=== PATIENT | female | born 1950 | race Caucasian/White ===

== ENCOUNTER 2016-05-26 16:05 | Inpatient (IN) | payer BC ==
[2016-05-26] MEDS ORDERED: SODIUM CHLORIDE 1,000 ML IV STA (16:11)
[2016-05-26] MEDS ORDERED: LORAZEPAM CARPU-JECT 2 MG/ML DISP.SYRIN IVPUSH ONE (16:11)
[2016-05-26 16:41] LABS: EOSINOPHIL 0.5 % (0-4.5); MCH 31.1 pg (25.7-33.7); MCHC 34.1 g/dl (32.0-36.0); MEAN CELL VOLUME 91.3 fl (80-96); MEAN PLT VOLUME 7.8 fl (7.5-11.1); NEUTROPHILS 63.4 % (42.8-82.8); PLATELET COUNT 385 K/MM3 (134-434); RDW 13.7 % (11.6-15.6); WHITE BLOOD COUNT 7.5 K/mm3 (4.0-10.0)
[2016-05-26 16:49] LABS: ALBUMIN 4.1 g/dl (3.5-5.0); ALK PHOS 67 U/L (32-92); ANION GAP 14 (8-16); BILIRUBIN,TOTAL 0.9 mg/dl (0.2-1.0); CALCIUM 9.6 mg/dl (8.4-10.2); CO2 19 mmol/L (22-28); CREATININE 0.9 mg/dl (0.6-1.3); GLUCOSE,RANDOM 210 mg/dl (74-106); MAGNESIUM 1.7 mg/dL (1.8-2.4); SGOT/AST 40 U/L (10-42); SGPT/ALT 16 U/L (10-40); TOT PROT 7.4 g/dl (6.4-8.3)
[2016-05-26 16:56] LABS: CPK(DFH) 132 IU/L (26-140)
[2016-05-26 17:13] LABS: TROPONIN I (DFP) < 0.03 ng/ml (0.03-0.50)
--- NOTE | 2016-05-26 17:16 | PDOC ---
History of Present Illness - History of Present Illness Initial Comments: 05/26/16 17:33 The patient is a 65 year old female with no PMHx who presents to the ED via EMS after a seizure. The patient's reports that the patient is under a lot of stress. The patient's was with the patient when she seized for several minutes, which resolved on its own. Patient denies chest pain, shortness of breath, headache, dizziness. Denies fever, chills, nausea, vomiting , diarrhea. <Marianna Loomis - Last Filed: 05/26/16 17:33> - General History Source: Patient, EMS, Family Exam Limitations: No Limitations <Jagjit Zuniga - Last Filed: 05/30/16 15:35> - General Chief Complaint: Seizure Stated Complaint: SEIZURE Time Seen by Provider: 05/26/16 16:10 Past History <Marianna Loomis - Last Filed: 05/26/16 17:33> - Past Medical History HTN: Yes Hypercholesterolemia: Yes - Psycho/Social/Smoking Cessation Hx Suicidal Ideation: No Smoking History: Never smoked Information on smoking cessation initiated: No Hx Alcohol Use: Yes (WINE 1 GLASS DAILY) Drug/Substance Use Hx: No <Jagjit Zuniga - Last Filed: 05/30/16 15:35> - Past Medical History Allergies/Adverse Reactions: Allergies Allergy/AdvReac Type Severity Reaction Status Date / Time Sulfa (Sulfonamide Allergy Intermediate Verified 05/26/16 16:22 Antibiotics) Home Medications: Ambulatory Orders Calcium Carbonate/Vitamin D3 [Calcium 600-Vit D3 200 Tablet] 1 each PO DAILY tablet 08/28/13 Cholecalciferol (Vitamin D3) [Vitamin D3] 2,000 unit PO AM capsule 09/28/13 Simvastatin 10 mg PO DAILY 05/26/16 Amlodipine Besylate [Norvasc -] 5 mg PO DAILY #30 tablet 05/28/16 Lisinopril [Prinivil] 10 mg PO DAILY #30 tablet 05/28/16 Sodium Chloride Tablet - 1 gm PO TID #90 tablet 05/28/16 Review of Systems - Review of Systems Comments:: 05/26/16 17:33 GENERAL/CONSTITUTIONAL: No fever or chills. No weakness. HEAD, EYES, EARS, NOSE AND THROAT: No change in vision. No ear pain or discharge. No sore throat. CARDIOVASCULAR: No chest pain or shortness of breath. RESPIRATORY: No cough, wheezing, or hemoptysis. GASTROINTESTINAL: No nausea, vomiting, diarrhea or constipation. GENITOURINARY: No dysuria, frequency, or change in urination. MUSCULOSKELETAL: No joint or muscle swelling or pain. No neck or back pain. SKIN: No rash NEUROLOGIC: + seizure. No headache, vertigo, or change in strength/sensation. ENDOCRINE: No increased thirst. No abnormal weight change. HEMATOLOGIC/LYMPHATIC: No anemia, easy bleeding, or history of blood clots. ALLERGIC/IMMUNOLOGIC: No hives or skin allergy. <VladislavMarianna A - Last Filed: 05/26/16 17:33> *Physical Exam - Vital Signs Last Vital Signs Temp Pulse Resp BP Pulse Ox 98 F 97 H 18 143/86 99 05/26/16 16:06 05/26/16 16:06 05/26/16 16:06 05/26/16 16:20 05/26/16 16:06 - Physical Exam Comments: 05/26/16 17:33 GENERAL: Confused, A&Ox1, most likely postictal. HEAD: No signs of trauma EYES: PERRLA, EOMI, sclera anicteric, conjunctiva clear ENT: Auricles normal inspection, hearing grossly normal, nares patent, oropharynx clear without exudates. Moist mucosa NECK: Normal ROM, supple, no lymphadenopathy, JVD, or masses LUNGS: Breath sounds equal, clear to auscultation bilaterally. No wheezes, and no crackles HEART: Regular rate and rhythm, normal S1 and S2, no murmurs, rubs or gallops ABDOMEN: Soft, nontender, normoactive bowel sounds. No guarding, no rebound. No masses EXTREMITIES: Normal range of motion, no edema. No clubbing or cyanosis. No cords, erythema, or tenderness NEUROLOGICAL: Cranial nerves II through XII grossly intact. Normal speech, 5/5 strength upper and lower extremities. Sensation intact throughout. No pronator drift. No dysarthria. No dysmetria. SKIN: Warm, Dry, normal turgor, no rashes or lesions noted. <VladislavMarianna A - Last Filed: 05/26/16 17:33> - Vital Signs Last Vital Signs Temp Pulse Resp BP Pulse Ox 98 F 97 H 18 143/86 99 05/26/16 16:06 05/26/16 16:06 05/26/16 16:06 05/26/16 16:20 05/26/16 16:06 - Physical Exam Comments: 05/30/16 15:34 CORRECTION TO SCRIBE NOTE: CN II-XII is intact, not grossly intact. <Jagjit Zuniga - Last Filed: 05/30/16 15:35> Heart Score/ECG Review #1 ECG reviewed & interpreted by me at: 16:45 05/26/16 17:12 A portion of this note was documented by scribe services under my direction. I have reviewed the details of the note, within reason, and agree with the documentation with the following case summary and management plan written by me. Patient treated in the ED. Patient arrives by ambulance to the emergency department. Nursing notes are reviewed and incorporated into the medical decision-making. Vital signs reviewed. Peripheral IV access obtained by the nurse, laboratory studies are drawn and sent, reviewed and interpreted by myself. Vital Signs Temp Pulse Resp BP Pulse Ox 98 F 97 H 18 143/86 99 05/26/16 16:06 05/26/16 16:06 05/26/16 16:06 05/26/16 16:20 05/26/16 16:06 <Jagjit Zuniga - Last Filed: 05/30/16 15:35> ED Treatment Course - LABORATORY CBC & Chemistry Diagram: 05/26/16 16:15 05/26/16 16:15 - ADDITIONAL ORDERS Additional order review: Laboratory Results 05/26/16 05/26/16 16:15 16:15 Sodium 126 L Potassium 4.0 Chloride 93 L Carbon Dioxide 19 L D Anion Gap 14 BUN 12 Creatinine 0.9 D Creat Clearance w eGFR > 60 Random Glucose 210 H D Calcium 9.6 Magnesium 1.7 L Total Bilirubin 0.9 D AST 40 D ALT 16 Alkaline Phosphatase 67 Creatine Kinase 132 Cancelled Troponin I < 0.03 L Cancelled Total Protein 7.4 Albumin 4.1 05/26/16 16:15 RBC 4.25 MCV 91.3 MCHC 34.1 RDW 13.7 MPV 7.8 Neutrophils % 63.4 Lymphocytes % 28.5 Monocytes % 6.6 Eosinophils % 0.5 Basophils % 1.0 D - Medications Given in the ED: ED Medications Discontinued Medications Generic Name Dose Route Start Last Admin Trade Name Toluq PRN Reason Stop Dose Admin Sodium Chloride 1,000 mls @ 1,000 mls/hr 05/26/16 16:11 05/26/16 16:20 Normal Saline - IV 05/26/16 17:10 1,000 mls/hr ASDIR STA Administration Lorazepam 1 mg 05/26/16 16:11 05/26/16 16:20 Ativan Injection - IVPUSH 05/26/16 16:12 1 mg ONCE ONE Administration <Marianna Loomis - Last Filed: 05/26/16 17:33> - LABORATORY CBC & Chemistry Diagram: 05/28/16 07:50 05/28/16 07:50 - ADDITIONAL ORDERS Additional order review: Laboratory Results 05/26/16 05/26/16 16:15 16:15 Sodium 126 L Potassium 4.0 Chloride 93 L Carbon Dioxide 19 L D Anion Gap 14 BUN 12 Creatinine 0.9 D Creat Clearance w eGFR > 60 Random Glucose 210 H D Calcium 9.6 Magnesium 1.7 L Total Bilirubin 0.9 D AST 40 D ALT 16 Alkaline Phosphatase 67 Creatine Kinase 132 Cancelled Troponin I Cancelled Total Protein 7.4 Albumin 4.1 05/26/16 16:15 RBC 4.25 MCV 91.3 MCHC 34.1 RDW 13.7 MPV 7.8 Neutrophils % 63.4 Lymphocytes % 28.5 Monocytes % 6.6 Eosinophils % 0.5 Basophils % 1.0 D - RADIOLOGY Radiology Studies Ordered: Category Date Time Status HEAD CT WITHOUT CONTRAST [CT] Stat CT Scan 05/26/16 16:11 Ordered - Medications Given in the ED: ED Medications Discontinued Medications Generic Name Dose Route Start Last Admin Trade Name [place] PRN Reason Stop Dose Admin Sodium Chloride 1,000 mls @ 1,000 mls/hr 05/26/16 16:11 05/26/16 16:20 Normal Saline - IV 05/26/16 17:10 1,000 mls/hr ASDIR STA Administration Lorazepam 1 mg 05/26/16 16:11 05/26/16 16:20 Ativan Injection - IVPUSH 05/26/16 16:12 1 mg ONCE ONE Administration <Jagjit Zuniga - Last Filed: 05/30/16 15:35> Medical Decision Making - Medical Decision Making 05/26/16 18:13 A portion of this note was documented by scribe services under my direction. I have reviewed the details of the note, within reason, and agree with the documentation with the following case summary and management plan written by me. Patient treated in the ED. Nursing notes are reviewed and incorporated into the medical decision-making. Vital signs reviewed. Peripheral IV access obtained by the nurse, laboratory studies are drawn and sent, reviewed and interpreted by myself. Vital Signs Temp Pulse Resp BP Pulse Ox 98 F 97 H 18 143/86 99 05/26/16 16:06 05/26/16 16:06 05/26/16 16:06 05/26/16 16:20 05/26/16 16:06 65-year-old female with no past medical history, brought in by EMS, accompanied by her , presents with first-time episode of grand mal seizure. The patient's reports that the patient is under a lot of stress. The patient 's was with the patient when he noted that she was doing a rigid tonic clonic movement the last for several minutes and resolved on her own. The patient has been postictal given upon arrival to the ED. Patient had sugar checked which was normal by EMS and the patient is brought to the ED. When I had seen her, the patient was clearly postictal. The patient has no known history. Differential is broad including metabolic and neurologic. CAT scan head is ordered to rule out intracranial findings. However, patient blood work demonstrates sodium 126. Though 126 is generally higher than what we expect for seizure threshold for hyponatremia, we need to potentially presume that the seizure secondary to hyponatremia if the neurologic workup of the head CT is negative. Also, the patient should be admitted to the hospital for further evaluation. 05/26/16 18:13 CBC, BMP 05/26/16 16:15 05/26/16 16:15 CMP Sodium 126 mmol/L (136-145) L 05/26/16 16:15 Potassium 4.0 mmol/L (3.5-5.1) 05/26/16 16:15 Chloride 93 mmol/L (98-107) L 05/26/16 16:15 Carbon Dioxide 19 mmol/L (22-28) L D 05/26/16 16:15 Anion Gap 14 (8-16) 05/26/16 16:15 BUN 12 mg/dl (7-18) 05/26/16 16:15 Creatinine 0.9 mg/dl (0.6-1.3) D 05/26/16 16:15 Creat Clearance w eGFR > 60 (>60) 05/26/16 16:15 Random Glucose 210 mg/dl (74-106) H D 05/26/16 16:15 Calcium 9.6 mg/dl (8.4-10.2) 05/26/16 16:15 Magnesium 1.7 mg/dL (1.8-2.4) L 05/26/16 16:15 Total Bilirubin 0.9 mg/dl (0.2-1.0) D 05/26/16 16:15 AST 40 U/L (10-42) D 05/26/16 16:15 ALT 16 U/L (10-40) 05/26/16 16:15 Alkaline Phosphatase 67 U/L (32-92) 05/26/16 16:15 Creatine Kinase 132 IU/L (26-140) 05/26/16 16:15 Troponin I < 0.03 ng/ml (0.03-0.50) L 05/26/16 16:15 Total Protein 7.4 g/dl (6.4-8.3) 05/26/16 16:15 Albumin 4.1 g/dl (3.5-5.0) 05/26/16 16:15 CT head reviewed. No acute findings. Interestingly, the patient's sodium was 126. It is possible this point hyponatremia may be secondary to seizure. However, the patient's sodium is about 126, though at these levels, the are typically less likely to have seizures. But given these findings, the patient would benefit from admission to the hospital for further evaluation. The patient has been reassessed and is no longer postictal. Case is discussed with [facility] hospitalist who accepts the patient to telemetry admission. Case discussed in detail with admitting physician including history, physical exam and ancillary studies. Admitting physician has assumed care for the patient, will follow all pending diagnostics and will complete the evaluation and treatment. 05/26/16 18:22 Dr. Motta requests [facility] telemetry admission. Pt consents. <Jagjit Zuniga - Last Filed: 05/30/16 15:35> *DC/Admit/Observation/Transfer - Attestations Scribe Attestion: 05/26/16 17:33 Documentation prepared by Marianna Loomis, acting as biomedical engineering supervisor for Jagjit Zuniga MD. <Marianna Loomis - Last Filed: 05/26/16 17:33> - Discharge Dispostion Admit: Yes <Jagjit Zuniga - Last Filed: 05/30/16 15:35> Diagnosis at time of Disposition: Hyponatremia, Seizure - Discharge Dispostion Disposition: HOME Condition at time of disposition: Improved - Prescriptions
[2016-05-26 18:22] LABS: URINE APPEARANCE Clear; URINE BILIRUBIN Negative (NEGATIVE); URINE BLOOD Trace-lysed (NEGATIVE); URINE GLUCOSE (UA) Trace (NEGATIVE); URINE KETONE 1+ (NEGATIVE); URINE NITRITE Negative (NEGATIVE); URINE PROTEIN Negative (NEGATIVE); URINE UROBILINOGEN 0.2 E.U/dl (0.2-1.0)
[2016-05-26 18:25] LABS: URINE COLOR YELLOW; URINE LEUK ESTERASE 1+ (NEGATIVE)
[2016-05-26 18:51] LABS: URINE BACTERIA FEW /hpf (NEGATIVE)
--- NOTE | 2016-05-26 22:43 | HP ---
CHIEF COMPLAINT: seizure PCP: Destinee HISTORY OF PRESENT ILLNESS: This is a 65 year old female with a past medical history of hypertension and hyperlipidemia who presented to the ED after having a seizure. She reports that she was feeling well up until just before the surgery. She describes a sensation taking over her body that she is unable to fully describe. She states she had something that felt like palpitations and then wasn't able to move and her asked her if she was ok twice and then she doesn't remember anything after that until waking up in the ED. As per the ED note her described she was doing a rigid tonic clonic movement that lasted for several minutes and resolved on her own. Pt reports that she has had this feeling before but she "didn't let it take over". She also reports that she has not been eating well the past few days as she has been stressed out (her son has kidney stones and her daughter is buying a house.) She reports that she drinks about 8 16 oz bottles of water per day. Pt reports feeling fine on exam. ER course was notable for: (1) given 1L NS (2) given 1mg ativan (3) sodium 126 Recent Travel: pt denies PAST MEDICAL HISTORY: HTN HLD anxiety-has xanax but really takes PAST SURGICAL HISTORY: ectopic surgery age 32 Social History: Smoking: pt denies Alcohol: a couple glasses of wine per night Drugs: pt denies Allergies Sulfa (Sulfonamide Antibiotics) Allergy (Intermediate, Verified 05/26/16 16:22) HOME MEDICATIONS: 3 Medication Instructions Recorded Calcium Carbonate/Vitamin D3 1 each PO DAILY tablet 08/28/13 [Calcium + Vitamin D Tablet] Cholecalciferol (Vitamin D3) 2,000 unit PO AM capsule 09/28/13 [Vitamin D3] Simvastatin 10 mg PO DAILY 05/26/16 REVIEW OF SYSTEMS CONSTITUTIONAL: Absent: fever, chills, diaphoresis, generalized weakness, malaise, loss of appetite, weight change HEENT: Absent: rhinorrhea, nasal congestion, throat pain, throat swelling, difficulty swallowing, mouth swelling, ear pain, eye pain, visual changes CARDIOVASCULAR: Absent: chest pain, syncope, palpitations, irregular heart rate, lightheadedness , peripheral edema RESPIRATORY: Absent: cough, shortness of breath, dyspnea with exertion, orthopnea, wheezing, stridor, hemoptysis GASTROINTESTINAL: Absent: abdominal pain, abdominal distension, nausea, vomiting, diarrhea, constipation, melena, hematochezia GENITOURINARY: Absent: dysuria, frequency, urgency, hesitancy, hematuria, flank pain, genital pain MUSCULOSKELETAL: Absent: myalgia, arthralgia, joint swelling, back pain, neck pain SKIN: Absent: rash, itching, pallor HEMATOLOGIC/IMMUNOLOGIC: Absent: easy bleeding, easy bruising, lymphadenopathy, frequent infections ENDOCRINE: Absent: unexplained weight gain, unexplained weight loss, heat intolerance, cold intolerance NEUROLOGIC: Present: seizure Absent: headache, focal weakness or paresthesias, dizziness, unsteady gait, mental status changes, bladder or bowel incontinence PSYCHIATRIC: Absent: anxiety, depression, suicidal or homicidal ideation, hallucinations. PHYSICAL EXAMINATION Vital Signs - 24 hr 3 05/26/16 05/26/16 05/26/16 05/26/16 16:06 16:20 20:16 22:29 Temperature 98 F 98.0 F Pulse Rate 97 H 80 Pulse Rate [ 86 Apical] Respiratory 18 18 18 Rate Blood Pressure 143/86 143/86 126/74 Blood Pressure 133/75 [Arm] O2 Sat by Pulse 99 97 100 Oximetry (%) GENERAL: Awake, alert, and fully oriented, in no acute distress. HEAD: Normal with no signs of trauma. EYES: Pupils equal, round and reactive to light, extraocular movements intact, sclera anicteric, conjunctiva clear. No lid lag. EARS, NOSE, THROAT: Ears normal, nares patent, oropharynx clear without exudates. Moist mucous membranes. NECK: Normal range of motion, supple without lymphadenopathy, JVD, or masses. LUNGS: Breath sounds equal, clear to auscultation bilaterally. No wheezes, and no crackles. No accessory muscle use. HEART: Regular rate and rhythm, normal S1 and S2 without murmur, rub or gallop. ABDOMEN: Soft, nontender, not distended, normoactive bowel sounds, no guarding, no rebound, no masses. No hepatomegaly or splenomegaly. MUSCULOSKELETAL: Normal range of motion at all joints. No bony deformities or tenderness. No CVA tenderness. UPPER EXTREMITIES: 2+ pulses, warm, well-perfused. No cyanosis. No clubbing. No peripheral edema. LOWER EXTREMITIES: 2+ pulses, warm, well-perfused. No calf tenderness. No peripheral edema. NEUROLOGICAL: Cranial nerves II-XII intact. Normal speech. Normal gait. PSYCHIATRIC: Cooperative. Good eye contact. Appropriate mood and affect. SKIN: Warm, dry, normal turgor, no rashes or lesions noted, normal capillary refill. Laboratory Results - last 24 hr 3 05/26/16 05/26/16 05/26/16 16:15 16:15 16:15 WBC 7.5 RBC 4.25 Hgb 13.2 Hct 38.8 MCV 91.3 MCHC 34.1 RDW 13.7 Plt Count 385 MPV 7.8 Neutrophils % 63.4 Lymphocytes % 28.5 Monocytes % 6.6 Eosinophils % 0.5 Basophils % 1.0 D Sodium 126 L Potassium 4.0 Chloride 93 L Carbon Dioxide 19 L D Anion Gap 14 BUN 12 Creatinine 0.9 D Creat Clearance w eGFR > 60 Random Glucose 210 H D Calcium 9.6 Magnesium 1.7 L Total Bilirubin 0.9 D AST 40 D ALT 16 Alkaline Phosphatase 67 Creatine Kinase Cancelled 132 Troponin I Cancelled < 0.03 L Total Protein 7.4 Albumin 4.1 Urine Color Urine Appearance Urine pH Ur Specific [place] Urine Protein Urine Glucose (UA) Urine Ketones Urine Blood Urine Nitrite Urine Bilirubin Urine Urobilinogen Ur Leukocyte Esterase Urine RBC Urine WBC Ur Epithelial Cells Urine Bacteria 3 05/26/16 05/26/16 18:15 21:54 WBC RBC Hgb Hct MCV MCHC RDW Plt Count MPV Neutrophils % Lymphocytes % Monocytes % Eosinophils % Basophils % Sodium 124 L* Potassium 4.0 Chloride 94 L Carbon Dioxide 19 L Anion Gap 11 BUN 10 Creatinine 0.6 D Creat Clearance w eGFR Random Glucose 124 H D Calcium 9.0 Magnesium Total Bilirubin AST ALT Alkaline Phosphatase Creatine Kinase Troponin I Total Protein Albumin Urine Color Yellow Urine Appearance Clear Urine pH 7.0 Ur Specific [place] 1.015 Urine Protein Negative Urine Glucose (UA) Trace Urine Ketones 1+ H Urine Blood Trace-lysed Urine Nitrite Negative Urine Bilirubin Negative Urine Urobilinogen 0.2 e.u/dl Ur Leukocyte Esterase 1+ H Urine RBC 2-4 Urine WBC 5-8 Ur Epithelial Cells Few Urine Bacteria Few CT head: Cranial CT without contrast Clinical information given: first time seizure Negative exam. No discrete noncontrast CT abnormality is identified. MRI evaluation is suggested, nonemergent unless otherwise clinically indicated. Impression: As discussed above. ASSESSMENT/PLAN: 65yF with PMH HTN, HLD, anxiety presented to ED s/p seizure. She is being admitted for further treatment. seizure - new onset - neurology consult ordered - CT head negative - monitor for recurrence, ativan if occurs hyponatremia - repeat sodium 124 after 1L NS - fluid restriction 800cc/day - serum osmolality, urine osmolality, urine sodium, TSH ordered - renal consult ordered, discussed case with Dr. Duncan Hypertension - cont home meds: norvasc, benazepril, toprol as BP stable with same. Hyperlipidemia - cont zocor DVT PPX - heparin 5000u Q8H FEN - hold IVF for now, fluid restriction - repeat labs in am - regular diet Dispo: Pt currently requires inpatient management of her emergent condition. Visit type - Emergency Visit Emergency Visit: Yes ED Registration Date: 05/26/16 Care time: The patient presented to the Emergency Department on the above date and was hospitalized for further evaluation of their emergent condition. - New Patient This patient is new to me today: Yes Date on this admission: 05/26/16 - Critical Care Critical Care patient: No
[2016-05-26 22:44] LABS: ANION GAP 11 (8-16); CO2 19 mmol/L (22-28); CREATININE 0.6 mg/dl (0.6-1.3); GLUCOSE,RANDOM 124 mg/dl (74-106)
[2016-05-27 00:01] VITALS: BMI 24.5
[2016-05-27] MEDS: SODIUM CHLORIDE 1 GM TABLET PO SCH ×4 (00:58→21:14)
[2016-05-27 01:50] LABS: OSMOLALITY,SERUM 262 mosm/kg (278-305)
[2016-05-27] MEDS: HEPARIN NA (PORCINE) 5,000 UNITS/ML 1ML VIAL SQ SCH ×3 (02:22→18:08)
[2016-05-27 08:54] LABS: MAGNESIUM 1.9 mg/dL (1.8-2.4); PHOSPHOROUS 2.9 mg/dl (2.5-4.6)
--- NOTE | 2016-05-27 09:13 | CON.NEP ---
Consult Consult Specialty:: Nephrology Referred by:: Chacha Jarvis NP Reason for Consultation:: Hyponatremia - History of Present Illness Chief Complaint: New onset of seizure disorder History of Present Illness: This is a 65 year old female with a past medical hisotry of hypertension and hyperlipidemia who presented to the ED after having a seizure. Reportedly pt had rigid tonic clonic movement that lasted for several minutes prior resolving spontaneously. Serum Na decreased further with IVF PMH HTN on Lisinopriol, Metoprolol and Amlodipine but no diuretics Anxiety disorder on prn Alpazolam Anxiety related seizure >10 years ago HLD PSH S/P Ectopic Has had increased anxiety since son is now suffering from Kidney stones and dtr due to arrive from [place] which is stressful No C/O N/V or diarrhea No wt loss Pt drinks 3-4 quarts of water a day in addition to coffee and wine Non smoker 1-2 glasses of wine daily Had Mammogram and PAP smear in Sep 2015 Due for Colonoscopy - History Source History Provided By: Patient, Medical Record - Past Medical History ...: No - Alcohol/Substance Use Hx Alcohol Use: Yes (WINE 1 GLASS DAILY) - Smoking History Smoking history: Never smoked Have you smoked in the past 12 months: No Home Medications - Allergies Allergies/Adverse Reactions: Allergies Allergy/AdvReac Type Severity Reaction Status Date / Time Sulfa (Sulfonamide Allergy Intermediate Verified 05/26/16 16:22 Antibiotics) - Home Medications Home Medications: Ambulatory Orders Calcium Carbonate/Vitamin D3 [Calcium + Vitamin D Tablet] 1 each PO DAILY tablet 08/28/13 Cholecalciferol (Vitamin D3) [Vitamin D3] 2,000 unit PO AM capsule 09/28/13 Simvastatin 10 mg PO DAILY 05/26/16 Nephrology Consult - Height Height: 5 ft 7 in - Weight Weight: 157 lb - BMI Body Mass Index (BMI): 24.5 - Lab Results CBC,BMP: CBC, BMP 05/26/16 21:54 Laboratory Tests 05/26/16 05/26/16 05/26/16 16:15 18:15 21:54 Sodium 126 L Random Glucose 210 H D 124 H D Serum Osmolality TSH Ur Specific [place] 1.015 Urine Glucose (UA) Trace Urine Ketones 1+ H Ur Leukocyte Esterase 1+ H Urine RBC 2-4 Urine WBC 5-8 Urine Osmolality Ur Random Sodium 05/27/16 05/27/16 05/27/16 00:30 00:40 07:00 Sodium Random Glucose Serum Osmolality 262 L TSH Pending Ur Specific [place] Urine Glucose (UA) Urine Ketones Ur Leukocyte Esterase Urine RBC Urine WBC Urine Osmolality 367 Ur Random Sodium 101 Laboratory Tests 05/26/16 16:15 WBC 7.5 RBC 4.25 Hgb 13.2 Hct 38.8 MCV 91.3 MCHC 34.1 RDW 13.7 Plt Count 385 Anion Gap: Anion Gap Anion Gap 11 (8-16) 05/26/16 21:54 - Imaging Chest X-ray: Report Reviewed, Other (No acute pathology) Cat Scan: Report Reviewed (Brain Ct Scan unrevealing), Other EKG: Other (NSR with LAE) - Physical Examination Vital Signs: Vital Signs Temperature 98.0 F 05/27/16 06:40 Pulse Rate 80 05/27/16 06:40 Respiratory Rate 20 05/27/16 08:01 Blood Pressure 137/75 05/27/16 06:40 O2 Sat by Pulse Oximetry (%) 98 05/27/16 08:01 Constitutional: Yes: Anxious Cardiovascular: Yes: S1, S2. No: JVD Respiratory: Yes: CTA Bilaterally Gastrointestinal: Yes: Soft. No: Palpable Mass, Tenderness, Rebound Renal/: No: CVA Tenderness - Left, CVA Tenderness - Right Edema: No Neurological: Yes: Alert, Oriented Assessment/Plan Impression Hyponatremia possibly from an SIADH from her anxiety but to exclude other causes. Polydipsia also contributory to the hyponatremia. Seizure disorder in past now the result of or the cause of the hyponatremia Pyuria HTN HLD Plan Add Cortisol to am labs Await TSH level Fluid restrict Rpt BMP at 4 pm today Will need to exclude underlying malignancy if SIADH confirmed UC awaited Neurology opinion DIscussed with the Hospitalist Dr Morgan
--- NOTE | 2016-05-27 09:21 | EKG ---
Test Reason : Blood Pressure : / mmHG Vent. Rate : 088 BPM Atrial Rate : 088 BPM P-R Int : 136 ms QRS Dur : 078 ms QT Int : 400 ms P-R-T Axes : 058 016 055 degrees QTc Int : 484 ms NORMAL SINUS RHYTHM POSSIBLE LEFT ATRIAL ENLARGEMENT NONSPECIFIC ST ABNORMALITY PROLONGED QT ABNORMAL ECG NO PREVIOUS ECGS AVAILABLE Confirmed by AGUSTÍN HERR MD ([id number] on 05/27/2016 9:21:26 AM Referred By: MD AMBROSIO Confirmed By:AGUSTÍN HERR MD
--- NOTE | 2016-05-27 10:06 | PN ---
[id number] year old female with a past medical history of anxiety, hypertension and hyperlipidemia. Patient was admitted from the emergency department for hyponatremia. Vital Signs Period Temp Pulse Resp BP Sys/Correa Pulse Ox Last 24 Hr 98.0 F-98.0 F 80-80 8-20 126-137/74-75 98-100 GENERAL: The patient is awake, alert, and fully oriented, anxious . HEAD: Normal with no signs of trauma. EYES: PERRL, extraocular movements intact, sclera anicteric, conjunctiva clear. No ptosis. ENT: Ears normal, nares patent, oropharynx clear without exudates, moist mucous membranes. NECK: Trachea midline, full range of motion, supple. LUNGS: Breath sounds equal, clear to auscultation bilaterally, no wheezes, no crackles, no accessory muscle use. HEART: Regular rate and rhythm, S1, S2 without murmur, rub or gallop. ABDOMEN: Soft, nontender, nondistended, normoactive bowel sounds, no guarding, no rebound, no hepatosplenomegaly, no masses. EXTREMITIES: 2+ pulses, warm, well-perfused, no edema. NEUROLOGICAL: Cranial nerves II through XII grossly intact. Normal speech, gait not observed. PSYCH: Normal mood, normal affect. SKIN: Warm, dry, normal turgor, no rashes or lesions noted Laboratory Results - last 24 hr CBC WBC 4.8 K/mm3 (4.0-10.0) D 05/27/16 07:45 RBC 4.01 M/mm3 (3.60-5.2) 05/27/16 07:45 Hgb 12.8 GM/dl (10.7-15.3) 05/27/16 07:45 Hct 37.5 % (32.4-45.2) 05/27/16 07:45 MCV 93.5 fl (80-96) 05/27/16 07:45 MCHC 34.1 g/dl (32.0-36.0) 05/27/16 07:45 RDW 13.9 % (11.6-15.6) 05/27/16 07:45 Plt Count 327 K/MM3 (134-434) 05/27/16 07:45 MPV 7.9 fl (7.5-11.1) 05/27/16 07:45 Neutrophils % 66.7 % (42.8-82.8) 05/27/16 07:45 Lymphocytes % 23.9 % (8-40) 05/27/16 07:45 Monocytes % 8.2 % (3.8-10.2) 05/27/16 07:45 Eosinophils % 0.5 % (0-4.5) 05/27/16 07:45 Basophils % 0.7 % (0-2.0) 05/27/16 07:45 CMP Sodium 127 mmol/L (136-145) L 05/27/16 07:45 Potassium 3.7 mmol/L (3.5-5.1) 05/27/16 07:45 Chloride 97 mmol/L (98-107) L 05/27/16 07:45 Carbon Dioxide 20 mmol/L (22-28) L 05/27/16 07:45 Anion Gap 10 (8-16) 05/27/16 07:45 BUN 8 mg/dl (7-18) 05/27/16 07:45 Creatinine 0.7 mg/dl (0.6-1.3) 05/27/16 07:45 Creat Clearance w eGFR > 60 (>60) 05/26/16 16:15 Random Glucose 89 mg/dl (74-106) D 05/27/16 07:45 Serum Osmolality 262 mosm/kg (278-305) L 05/27/16 00:40 Calcium 9.4 mg/dl (8.4-10.2) 05/27/16 07:45 Phosphorus 2.9 mg/dl (2.5-4.6) 05/27/16 07:00 Magnesium 1.9 mg/dL (1.8-2.4) 05/27/16 07:00 Total Bilirubin 0.9 mg/dl (0.2-1.0) D 05/26/16 16:15 AST 40 U/L (10-42) D 05/26/16 16:15 ALT 16 U/L (10-40) 05/26/16 16:15 Alkaline Phosphatase 67 U/L (32-92) 05/26/16 16:15 Creatine Kinase 132 IU/L (26-140) 05/26/16 16:15 Troponin I < 0.03 ng/ml (0.03-0.50) L 05/26/16 16:15 Total Protein 7.4 g/dl (6.4-8.3) 05/26/16 16:15 Albumin 4.1 g/dl (3.5-5.0) 05/26/16 16:15 TSH 0.90 uIU/ml (0.358-3.74) D 05/27/16 07:00 Active Medications Generic Name Dose Route Start Last Admin Trade Name Freq PRN Reason Stop Dose Admin Amlodipine Besylate 5 mg 05/27/16 10:00 Norvasc - PO DAILY CASSIA Atorvastatin Calcium 10 mg 05/27/16 10:00 Lipitor - PO DAILY C[facility]IA Calcium Carbonate/Cholecalciferol 1 tab 05/27/16 10:00 Os-Abdelrahman 500+D - PO DAILY C[facility]IA Cholecalciferol 2,000 unit 05/27/16 10:00 Vitamin D3 - PO DAILY C[facility]IA Heparin Sodium (Porcine) 5,000 unit 05/27/16 02:00 05/27/16 02:22 Heparin - SQ 5,000 unit Q8H C[facility]IA Administration Lisinopril 10 mg 05/27/16 10:00 Prinivil PO DAILY CASSIA Metoprolol Succinate 50 mg 05/27/16 10:00 Toprol Xl - PO DAILY CASSIA Sodium Chloride 1 gm 05/27/16 01:00 05/27/16 06:15 Sodium Chloride Tablet - PO 1 gm TID CASSIA Administration CT head: Cranial CT without contrast Clinical information given: first time seizure Negative exam. No discrete noncontrast CT abnormality is identified. ASSESSMENT/PLAN: 1) neuro: seizure - past history of seizure secondary to hyponatremia in 2004 - seizure precautions - neuro consult 2) neph: hyponatremia - repeat sodium 127, continue fluid restriction and sodium tablets - f/u serum & urine osmo and urine sodium, TSH WNL - Dr Morgan nephrology consulted and following 3) card hypertension - continue norvasc, benazepril, toprol - b/p well controlled Hyperlipidemia - continue zocor DVT PPX - heparin 5000u Q8H FEN - regular diet - repeat bmp at 1600 Dispo: Pt currently requires inpatient management of her emergent condition. Visit type - Emergency Visit Emergency Visit: Yes ED Registration Date: 05/26/16 Care time: The patient presented to the Emergency Department on the above date and was hospitalized for further evaluation of their emergent condition. - New Patient This patient is new to me today: No - Critical Care Critical Care patient: No - Discharge Referral Referred to [facility] Med P.C.: No
[2016-05-27 10:09] LABS: MCH 31.9 pg (25.7-33.7)
[2016-05-27 10:17] LABS: BASOPHIL 0.7 % (0-2.0); EOSINOPHIL 0.5 % (0-4.5); MCHC 34.1 g/dl (32.0-36.0); MEAN CELL VOLUME 93.5 fl (80-96); MEAN PLT VOLUME 7.9 fl (7.5-11.1); NEUTROPHILS 66.7 % (42.8-82.8); PLATELET COUNT 327 K/MM3 (134-434); RDW 13.9 % (11.6-15.6); WHITE BLOOD COUNT 4.8 K/mm3 (4.0-10.0)
[2016-05-27] MEDS: CHOLECALCIFEROL (VITAMIN D3) 1,000 UNIT TABLET (FP) PO SCH (10:22)
[2016-05-27] MEDS: ATORVASTATIN CA 10 MG TABLET (FP) PO SCH (10:23)
[2016-05-27] MEDS: CALCIUM 500MG/VIT-D 200 UNITS COMBO TABLET (FP) PO SCH (10:23)
[2016-05-27] MEDS: amLODIPine BESYLATE 5 MG TABLET (FP) PO SCH (10:23)
[2016-05-27] MEDS: METOPROLOL SUCCINATE 50 MG TAB.SR.24H (FP) PO SCH (10:23)
[2016-05-27 11:52] LABS: THYROID STIMULATING HORMONE 0.9 uIU/ml (0.358-3.74)
[2016-05-27 12:28] LABS: ANION GAP 10 (8-16); CALCIUM 9.4 mg/dl (8.4-10.2); CO2 20 mmol/L (22-28); CREATININE 0.7 mg/dl (0.6-1.3); GLUCOSE,RANDOM 89 mg/dl (74-106)
[2016-05-27] MEDS ORDERED: ALPRAZolam 0.25 MG TABLET PO PRN (14:13)
--- NOTE | 2016-05-27 15:28 | CONSULT ---
Consult - text type - Consultation Consultation Note: Neurology History of Present Illness The patient is a 65 year old female with no PMHx who presents to the ED via EMS after a seizure. The patient's reports that the patient is under a lot of stress. The patient's was with the patient when she seized for several minutes, which resolved on its own. She has never had episodes before. She is hyponatremic and being worked up. CT head done and without acute changes. Past History - Past Medical History HTN: Yes Hypercholesterolemia: Yes - Psycho/Social/Smoking Cessation Hx Suicidal Ideation: No Smoking History: Never smoked Information on smoking cessation initiated: No Hx Alcohol Use: Yes (WINE 1 GLASS DAILY) Drug/Substance Use Hx: No - Past Medical History Allergies/Adverse Reactions: Allergies Allergy/AdvReac Type Severity Reaction Status Date / Time Sulfa (Sulfonamide Allergy Intermediate Verified 05/26/16 16:22 Antibiotics) Home Medications: Ambulatory Orders Alprazolam 0.25 mg PO tablet 08/28/13 Calcium Carbonate/Vitamin D3 [Calcium + Vitamin D Tablet] 1 each PO DAILY tablet 08/28/13 Cholecalciferol (Vitamin D3) [Vitamin D3] 2,000 unit PO AM capsule 09/28/13 Review of Systems GENERAL/CONSTITUTIONAL: No fever or chills. No weakness. HEAD, EYES, EARS, NOSE AND THROAT: No change in vision. No ear pain or discharge. No sore throat. CARDIOVASCULAR: No chest pain or shortness of breath. RESPIRATORY: No cough, wheezing, or hemoptysis. GASTROINTESTINAL: No nausea, vomiting, diarrhea or constipation. GENITOURINARY: No dysuria, frequency, or change in urination. MUSCULOSKELETAL: No joint or muscle swelling or pain. No neck or back pain. SKIN: No rash NEUROLOGIC: + seizure. No headache, vertigo, or change in strength/sensation. ENDOCRINE: No increased thirst. No abnormal weight change. HEMATOLOGIC/LYMPHATIC: No anemia, easy bleeding, or history of blood clots. ALLERGIC/IMMUNOLOGIC: No hives or skin allergy. *Physical Exam - Vital Signs Last Vital Signs Temp Pulse Resp BP Pulse Ox 98 F 97 H 18 143/86 99 05/26/16 16:06 05/26/16 16:06 05/26/16 16:06 05/26/16 16:20 05/26/16 16:06 GENERAL: Confused, A&Ox1, most likely postictal. HEAD: No signs of trauma EYES: PERRLA, EOMI, sclera anicteric, conjunctiva clear ENT: Auricles normal inspection, hearing grossly normal, nares patent, oropharynx clear without exudates. Moist mucosa NECK: Normal ROM, supple, no lymphadenopathy, JVD, or masses LUNGS: Breath sounds equal, clear to auscultation bilaterally. No wheezes, and no crackles HEART: Regular rate and rhythm, normal S1 and S2, no murmurs, rubs or gallops ABDOMEN: Soft, nontender, normoactive bowel sounds. No guarding, no rebound. No masses EXTREMITIES: Normal range of motion, no edema. No clubbing or cyanosis. No cords, erythema, or tenderness NEUROLOGICAL: Cranial nerves II through XII grossly intact. Normal speech, 5/5 strength upper and lower extremities. Sensation intact throughout. No pronator drift. No dysarthria. No dysmetria. SKIN: Warm, Dry, normal turgor, no rashes or lesions noted. Laboratory Results 05/26/16 05/26/16 16:15 16:15 Sodium 126 L Potassium 4.0 Chloride 93 L Carbon Dioxide 19 L D Anion Gap 14 BUN 12 Creatinine 0.9 D Creat Clearance w eGFR > 60 Random Glucose 210 H D Calcium 9.6 Magnesium 1.7 L Total Bilirubin 0.9 D AST 40 D ALT 16 Alkaline Phosphatase 67 Creatine Kinase 132 Cancelled Troponin I < 0.03 L Cancelled Total Protein 7.4 Albumin 4.1 05/26/16 16:15 RBC 4.25 MCV 91.3 MCHC 34.1 RDW 13.7 MPV 7.8 Neutrophils % 63.4 Lymphocytes % 28.5 Monocytes % 6.6 Eosinophils % 0.5 Basophils % 1.0 D Medical Decision Making 65 year old female with no PMHx who presents to the ED via EMS after a seizure. The patient's reports that the patient is under a lot of stress. The patient's was with the patient when she seized for several minutes, which resolved on its own. She has never had episodes before. She is hyponatremic and being worked up. CT head done and without acute changes. Would not put her on AED for one time event. Would recommend correction of electrolyte abnormalities. Renal follow up.
[2016-05-27 16:39] LABS: ANION GAP 10 (8-16); CALCIUM 9.6 mg/dl (8.4-10.2); CO2 21 mmol/L (22-28); CREATININE 0.8 mg/dl (0.6-1.3); GLUCOSE,RANDOM 106 mg/dl (74-106)
[2016-05-28] MEDS: HEPARIN NA (PORCINE) 5,000 UNITS/ML 1ML VIAL SQ SCH ×2 (01:31→09:36)
[2016-05-28 06:42] VITALS: TEMP 98
[2016-05-28] MEDS: SODIUM CHLORIDE 1 GM TABLET PO SCH (06:57)
[2016-05-28 08:22] LABS: BASOPHIL 0.9 % (0-2.0); EOSINOPHIL 0.8 % (0-4.5); MCH 31.6 pg (25.7-33.7); MCHC 33.7 g/dl (32.0-36.0); MEAN CELL VOLUME 93.9 fl (80-96); MEAN PLT VOLUME 7.7 fl (7.5-11.1); NEUTROPHILS 65.1 % (42.8-82.8); PLATELET COUNT 318 K/MM3 (134-434); RDW 14.3 % (11.6-15.6); WHITE BLOOD COUNT 5.7 K/mm3 (4.0-10.0)
[2016-05-28 08:48] LABS: ALBUMIN 3.6 g/dl (3.5-5.0); ALK PHOS 54 U/L (32-92); ANION GAP 9 (8-16); BILIRUBIN,TOTAL 0.7 mg/dl (0.2-1.0); CALCIUM 9.2 mg/dl (8.4-10.2); CO2 24 mmol/L (22-28); CREATININE 0.7 mg/dl (0.6-1.3); GLUCOSE,RANDOM 105 mg/dl (74-106); SGOT/AST 29 U/L (10-42); SGPT/ALT 15 U/L (10-40); TOT PROT 6.9 g/dl (6.4-8.3)
[2016-05-28 08:59] LABS: COCKROFT - GAULT NT
[2016-05-28 09:32] VITALS: BP 120/70; PULSE 72
[2016-05-28] MEDS: METOPROLOL SUCCINATE 50 MG TAB.SR.24H (FP) PO SCH (09:33)
[2016-05-28] MEDS: CHOLECALCIFEROL (VITAMIN D3) 1,000 UNIT TABLET (FP) PO SCH (09:34)
[2016-05-28] MEDS: CALCIUM 500MG/VIT-D 200 UNITS COMBO TABLET (FP) PO SCH (09:36)
[2016-05-28] MEDS: ATORVASTATIN CA 10 MG TABLET (FP) PO SCH (09:36)
[2016-05-28] MEDS: amLODIPine BESYLATE 5 MG TABLET (FP) PO SCH (09:36)
--- NOTE | 2016-05-28 09:41 | PN ---
Physical Exam: SUBJECTIVE: Patient seen and examined. She denies any dizziness, shortness of breath of any other discomfort. States she is aware that she was drinking an excessive amount of water. States she is very stressed due to family situations. OBJECTIVE: On a 800cc fluid restriction Vital Signs Period Temp Pulse Resp BP Sys/Correa Pulse Ox Last 24 Hr 97.8 F-98.2 F 72-87 16-18 106-129/54-75 98-100 GENERAL: The patient is awake, alert, and fully oriented, in no acute distress. HEAD: Normal with no signs of trauma. EYES: PERRL, extraocular movements intact, sclera anicteric, conjunctiva clear. No ptosis. ENT: Ears normal, nares patent, oropharynx clear without exudates, moist mucous membranes. NECK: Trachea midline, full range of motion, supple. LUNGS: Breath sounds equal, clear to auscultation bilaterally, no wheezes, no crackles, no accessory muscle use. HEART: Regular rate and rhythm ABDOMEN: Soft, nontender, nondistended, normoactive bowel sounds, no guarding, no rebound, no hepatosplenomegaly, no masses. EXTREMITIES: 2no edema. NEUROLOGICAL: Normal speech, gait not observed. PSYCH: Normal mood, normal affect. SKIN: Warm, dry, normal turgor, no rashes or lesions noted Laboratory Results - last 24 hr 05/27/16 05/27/16 05/27/16 07:00 07:45 07:45 WBC 4.8 D RBC 4.01 Hgb 12.8 Hct 37.5 MCV 93.5 MCHC 34.1 RDW 13.9 Plt Count 327 MPV 7.9 Neutrophils % 66.7 Lymphocytes % 23.9 Monocytes % 8.2 Eosinophils % 0.5 Basophils % 0.7 Sodium 127 L Potassium 3.7 Chloride 97 L Carbon Dioxide 20 L Anion Gap 10 BUN 8 Creatinine 0.7 Creat Clearance w eGFR Random Glucose 89 D Calcium 9.4 Total Bilirubin AST ALT Alkaline Phosphatase Total Protein Albumin TSH 0.90 D Cortisol AM Sample 05/27/16 05/27/16 05/28/16 16:00 16:18 07:50 WBC 5.7 RBC 3.95 Hgb 12.5 Hct 37.1 MCV 93.9 MCHC 33.7 RDW 14.3 Plt Count 318 MPV 7.7 Neutrophils % 65.1 Lymphocytes % 27.1 Monocytes % 6.1 Eosinophils % 0.8 Basophils % 0.9 Sodium 129 L Potassium 4.0 Chloride 98 Carbon Dioxide 21 L Anion Gap 10 BUN 12 D Creatinine 0.8 Creat Clearance w eGFR Random Glucose 106 Calcium 9.6 Total Bilirubin AST ALT Alkaline Phosphatase Total Protein Albumin TSH Cortisol AM Sample 20.3 05/28/16 07:50 WBC RBC Hgb Hct MCV MCHC RDW Plt Count MPV Neutrophils % Lymphocytes % Monocytes % Eosinophils % Basophils % Sodium 134 L Potassium 3.8 Chloride 101 Carbon Dioxide 24 Anion Gap 9 BUN 11 Creatinine 0.7 Creat Clearance w eGFR > 60 Random Glucose 105 Calcium 9.2 Total Bilirubin 0.7 D AST 29 D ALT 15 Alkaline Phosphatase 54 Total Protein 6.9 Albumin 3.6 TSH Cortisol AM Sample Active Medications Generic Name Dose Route Start Last Admin Trade Name Freq PRN Reason Stop Dose Admin Alprazolam 0.25 mg 05/27/16 14:13 Xanax - PO Q8H PRN ANXIETY Amlodipine Besylate 5 mg 05/27/16 10:00 05/28/16 09:36 Norvasc - PO 5 mg DAILY CASSIA Administration Atorvastatin Calcium 10 mg 05/27/16 10:00 05/28/16 09:36 Lipitor - PO 10 mg DAILY CASSIA Administration Calcium Carbonate/Cholecalciferol 1 tab 05/27/16 10:00 05/28/16 09:36 Os-Abdelrahman 500+D - PO 1 tab DAILY CASSIA Administration Cholecalciferol 2,000 unit 05/27/16 10:00 05/28/16 09:34 Vitamin D3 - PO 2,000 unit DAILY CASSIA Administration Heparin Sodium (Porcine) 5,000 unit 05/27/16 02:00 05/28/16 09:36 Heparin - SQ 5,000 unit Q8H CASSIA Administration Lisinopril 10 mg 05/27/16 10:00 05/28/16 09:33 Prinivil PO 10 mg DAILY CASSIA Administration Metoprolol Succinate 50 mg 05/27/16 10:00 05/28/16 09:33 Toprol Xl - PO 50 mg DAILY CASSIA Administration Sodium Chloride 1 gm 05/27/16 01:00 05/28/16 06:57 Sodium Chloride Tablet - PO 1 gm TID CASSIA Administration ASSESSMENT/PLAN: Patient is a 65 year old female with a past medical history of anxiety, hypertension and HLD. She was admitted was on 05/26/2016 for hyponatremia. Imaging: Head CT 05/26/2016: negative study. Neurology: Seizure - acute Assessment/Plan: Likely secondary to to hyponatremia - now improving 127 > 134 No reported seizures since admission On a 800cc fluid restriction, and sodium tablets TID Continue seizure precautions Neurology consult and following Nephro: Hyponatremia - improving Continue fluid restriction, sodium tablets TID Cardiology: Hypertension: On Norvasc, Lisinopril and Toprol HLD: On Zocor DVT PPX: On heparin 5000units q8 F.E.N. Fluids: fluid restriction @ 800cc Repeat BMP @ 1600 Disposition: Pt currently requires inpatient management of her emergent condition. D/c home once cleared by neuro and nephrology. Full Code. Visit type - Emergency Visit Emergency Visit: Yes ED Registration Date: 05/26/16 Care time: The patient presented to the Emergency Department on the above date and was hospitalized for further evaluation of their emergent condition. - New Patient This patient is new to me today: Yes Date on this admission: 06/05/16 - Critical Care Critical Care patient: No - Discharge Referral Referred to [facility] Med P.C.: No
--- NOTE | 2016-05-28 10:35 | PN ---
Progress Note, Physician History of Present Illness: Pt seen and examined at bedside. She is awake and alert. She denies headache or change in vision. - Current Medication List Current Medications: Active Medications Alprazolam (Xanax -) 0.25 mg PO Q8H PRN PRN Reason: ANXIETY Amlodipine Besylate (Norvasc -) 5 mg PO DAILY [facility] Last Admin: 05/28/16 09:36 Dose: 5 mg Atorvastatin Calcium (Lipitor -) 10 mg PO DAILY [facility] Last Admin: 05/28/16 09:36 Dose: 10 mg Calcium Carbonate/Cholecalciferol (Os-Abdelrahman 500+D -) 1 tab PO DAILY [facility] Last Admin: 05/28/16 09:36 Dose: 1 tab Cholecalciferol (Vitamin D3 -) 2,000 unit PO DAILY [facility] Last Admin: 05/28/16 09:34 Dose: 2,000 unit Heparin Sodium (Porcine) (Heparin -) 5,000 unit SQ Q8H [facility] Last Admin: 05/28/16 09:36 Dose: 5,000 unit Lisinopril (Prinivil) 10 mg PO DAILY [facility] Last Admin: 05/28/16 09:33 Dose: 10 mg Metoprolol Succinate (Toprol Xl -) 50 mg PO DAILY [facility] Last Admin: 05/28/16 09:33 Dose: 50 mg Sodium Chloride (Sodium Chloride Tablet -) 1 gm PO TID [facility] Last Admin: 05/28/16 06:57 Dose: 1 gm - Objective Vital Signs: Vital Signs Temperature 98 F 05/28/16 06:00 Pulse Rate 72 05/28/16 09:31 Respiratory Rate 18 05/28/16 06:00 Blood Pressure 120/70 05/28/16 09:31 O2 Sat by Pulse Oximetry (%) 98 05/28/16 08:00 Constitutional: Yes: Calm Eyes: Yes: Conjunctiva Clear HENT: Yes: Atraumatic Neck: Yes: Supple Cardiovascular: Yes: S1, S2 Respiratory: Yes: CTA Bilaterally Gastrointestinal: Yes: Soft Genitourinary: Yes: WNL Musculoskeletal: Yes: WNL Edema: No Neurological: Yes: Oriented Psychiatric: Yes: Oriented Labs: CBC, BMP 05/28/16 07:50 05/28/16 07:50 Problem List - Problems (1) Hyponatremia Code(s): E87.1 - HYPO-OSMOLALITY AND HYPONATREMIA (2) Seizure Code(s): R56.9 - UNSPECIFIED CONVULSIONS Assessment/Plan Current Medications Generic Name Dose Route Start Last Admin Trade Name Freq PRN Reason Stop Dose Admin Alprazolam 0.25 mg 05/27/16 14:13 Xanax - PO Q8H PRN ANXIETY Amlodipine Besylate 5 mg 05/27/16 10:00 05/28/16 09:36 Norvasc - PO 5 mg DAILY CASSIA Administration Atorvastatin Calcium 10 mg 05/27/16 10:00 05/28/16 09:36 Lipitor - PO 10 mg DAILY CASSIA Administration Calcium Carbonate/Cholecalciferol 1 tab 05/27/16 10:00 05/28/16 09:36 Os-Abdelrahman 500+D - PO 1 tab DAILY CASSIA Administration Cholecalciferol 2,000 unit 05/27/16 10:00 05/28/16 09:34 Vitamin D3 - PO 2,000 unit DAILY CASSIA Administration Heparin Sodium (Porcine) 5,000 unit 05/27/16 02:00 05/28/16 09:36 Heparin - SQ 5,000 unit Q8H CASSIA Administration Lisinopril 10 mg 05/27/16 10:00 05/28/16 09:33 Prinivil PO 10 mg DAILY CASSIA Administration Metoprolol Succinate 50 mg 05/27/16 10:00 05/28/16 09:33 Toprol Xl - PO 50 mg DAILY CASSIA Administration Sodium Chloride 1 gm 05/27/16 01:00 05/28/16 06:57 Sodium Chloride Tablet - PO 1 gm TID CASSIA Administration Laboratory Tests 08/22/13 02/06/14 08/23/14 10:30 08:20 11:05 Sodium 131 L 134 L 126 L Serum Osmolality TSH Cortisol AM Sample Urine Osmolality Ur Random Sodium 09/20/14 09/02/15 03/12/16 12:00 11:55 07:03 Sodium 128 L 129 L 132 L Serum Osmolality TSH Cortisol AM Sample Urine Osmolality Ur Random Sodium 05/26/16 05/26/16 05/27/16 16:15 21:54 00:30 Sodium 126 L 124 L* Serum Osmolality TSH Cortisol AM Sample Urine Osmolality Ur Random Sodium 101 05/27/16 05/27/16 05/27/16 00:40 07:00 07:45 Sodium 127 L Serum Osmolality 262 L TSH 0.90 D Cortisol AM Sample Urine Osmolality 367 Ur Random Sodium 05/27/16 05/27/16 05/28/16 16:00 16:18 07:50 Sodium 129 L 134 L Serum Osmolality TSH Cortisol AM Sample 20.3 Urine Osmolality Ur Random Sodium Impression 1. Hyponatremia 2. HTN 3. anxiety 4. seizure 5. 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
--- NOTE | 2016-05-28 11:49 | DS ---
Physical Exam: SUBJECTIVE: Patient seen and examined. Asking to go home. OBJECTIVE: Patient seen and examined. She denies any dizziness, shortness of breath of any other discomfort. States she is aware that she was drinking an excessive amount of water. States she is very stressed due to family situations. Vital Signs Period Temp Pulse Resp BP Sys/Correa Pulse Ox Last 24 Hr 97.8 F-98.2 F 72-81 16-18 106-129/54-75 98-100 PHYSICAL EXAM GENERAL: The patient is awake, alert, and fully oriented, in no acute distress. HEAD: Normal with no signs of trauma. EYES: PERRL, extraocular movements intact, sclera anicteric, conjunctiva clear. No ptosis. ENT: Ears normal, nares patent, oropharynx clear without exudates, moist mucous membranes. NECK: Trachea midline, full range of motion, supple. LUNGS: Breath sounds equal, clear to auscultation bilaterally, no wheezes, no crackles, no accessory muscle use. HEART: Regular rate and rhythm ABDOMEN: Soft, nontender, nondistended, normoactive bowel sounds, no guarding, no rebound, no hepatosplenomegaly, no masses. EXTREMITIES: 2no edema. NEUROLOGICAL: Normal speech, gait not observed. PSYCH: Normal mood, normal affect. SKIN: Warm, dry, normal turgor, no rashes or lesions noted LABS Laboratory Results - last 24 hr 05/27/16 05/27/16 05/27/16 07:00 07:45 16:00 WBC RBC Hgb Hct MCV MCHC RDW Plt Count MPV Neutrophils % Lymphocytes % Monocytes % Eosinophils % Basophils % Sodium 127 L Potassium 3.7 Chloride 97 L Carbon Dioxide 20 L Anion Gap 10 BUN 8 Creatinine 0.7 Creat Clearance w eGFR Random Glucose 89 D Calcium 9.4 Total Bilirubin AST ALT Alkaline Phosphatase Total Protein Albumin TSH 0.90 D Cortisol AM Sample 20.3 05/27/16 05/28/16 05/28/16 16:18 07:50 07:50 WBC 5.7 RBC 3.95 Hgb 12.5 Hct 37.1 MCV 93.9 MCHC 33.7 RDW 14.3 Plt Count 318 MPV 7.7 Neutrophils % 65.1 Lymphocytes % 27.1 Monocytes % 6.1 Eosinophils % 0.8 Basophils % 0.9 Sodium 129 L 134 L Potassium 4.0 3.8 Chloride 98 101 Carbon Dioxide 21 L 24 Anion Gap 10 9 BUN 12 D 11 Creatinine 0.8 0.7 Creat Clearance w eGFR > 60 Random Glucose 106 105 Calcium 9.6 9.2 Total Bilirubin 0.7 D AST 29 D ALT 15 Alkaline Phosphatase 54 Total Protein 6.9 Albumin 3.6 TSH Cortisol AM Sample HOSPITAL COURSE: Date of Admission:05/26/16 Date of Discharge: 05/28/16 ASSESSMENT/PLAN: Patient is a 65 year old female with a past medical history of anxiety, hypertension and HLD. She was admitted was on 05/26/2016 for hyponatremia. Imaging: Head CT 05/26/2016: negative study. Neurology: Seizure - acute Assessment/Plan: Likely secondary to to hyponatremia - now improving 127 > 134 - improved/to continue sodium tablets as outpatient No reported seizures since admission On a 800cc fluid restriction, and sodium tablets TID Continue seizure precautions Nephro: Hyponatremia - improving - improved Continue fluid restriction, sodium tablets TID Cardiology: Hypertension: On Norvasc, Lisinopril and Toprol HLD: On Zocor Discharge with close follow up with Dr. Felipe for further workup. Full Code. Minutes to complete discharge: 45 Discharge Summary Reason For Visit: SEIZURE & HYPONATREMIA Current Active Problems Hyponatremia (Acute) Seizure (Acute) Condition: Improved - Instructions Diet, Activity, Other Instructions: Please see Dr. Felipe within 3 days after discharge: Please continue the fluid restriction of 800cc of water per day. Continue the salt tablets three times per day as ordered. Your will need the following tests as an outpatient: 1. Colonoscopy 2. Follow up with Neurologist (Dr. Fisher) 3. You will need a ct scan of chest/abd/pelvis - schedule with your PCP. 4. Please follow up with Dr. Duncan Referrals: Clay Felipe MD [Staff Physician] - Ilir Fisher MD [Staff Physician] - Jacob Duncan MD [Staff Physician] - Disposition: HOME - Home Medications Comprehensive Discharge Medication List: Ambulatory Orders Calcium Carbonate/Vitamin D3 [Calcium + Vitamin D Tablet] 1 each PO DAILY tablet 08/28/13 Cholecalciferol (Vitamin D3) [Vitamin D3] 2,000 unit PO AM capsule 09/28/13 Simvastatin 10 mg PO DAILY 04/11/17 This patient is new to me today: Yes Date on this admission: 05/28/16 Emergency Visit: Yes ED Registration Date: 05/26/16 Care time: The patient presented to the Emergency Department on the above date and was hospitalized for further evaluation of their emergent condition. Critical Care patient: No - Discharge Referral Referred to [facility] Med P.C.: Yes Physician Referral: Clay Felipe MD (Int Med)
== END 2016-05-28 12:53 | disposition home or self-care (01) | DRG 641 ==
LOC: FER 16:05 → FM/S 21:09
PROVIDERS: ADMIT Internal Medicine; ATTEND Nurse Practitioner Family
DX: E87.1 Hypo-osmolality and hyponatremia (principal); G40.89 Other seizures; I10 Essential (primary) hypertension; E78.5 Hyperlipidemia, unspecified; F41.8 Other specified anxiety disorders
CPT/HCPCS: 36415; 70450-TC; 71020-TC; 80048; 80053; 81003; 81015; 82533; 82550; 83735; 83930; 83935; 84100; 84300; 84443; 84484; 85025; 93005; 99282-25; J1644

== ENCOUNTER 2016-07-01 16:32 | Inpatient (IN) | payer BC ==
[2016-07-01 16:40] VITALS: BMI 25.0
[2016-07-01] MEDS ORDERED: SODIUM CHLORIDE 1,000 ML IV SCH ×2 (16:45→17:30)
--- NOTE | 2016-07-01 16:57 | PDOC ---
History of Present Illness <Ella Payan - Last Filed: 07/01/16 18:26> - History of Present Illness Initial Comments: 07/01/16 17:31 History of Present Illness Initial Comments: 07/01/16 16:57 The patient is a 66 year old female, with a significant past medical history of seizure due to hyponatremia (05/26/16) and hyponatremia, who presents to the emergency department with sudden onset of confusion while sitting on her deck with her son about 20 minutes prior to arrival. As per the patients , his went for an abdominal CT scan this morning with oral contrast this am, drinking a large amount of free water with the contrst. The patients states the pt was fine when she came back from CT scan. She then went out to the porch and sat in the hot sun for a while.She was then found by her suddenly confused on the porch, without any evidence of seizure, prompting him to bring her to the hospital. As per the patients , he denies any recent illnesses, but reports she has had some diarrhea since drinking the oral contrast for CT scan. The patients also reports his wifes last seizure was one month ago secondary to hyponatremia. Dr. Felipe reports the patients sodium to be 126 Sodium in his office last week on 06/26/16. states that she has not had any recent complaints of chest pain, shortness of breath, or recent intercurrent fever Patient is unable to provide her own review of systems at this time due to AMS Allergies: Sulfa drugs Social history: no history of toxic habits PCP - Dr. Felipe <Ella Payan - Last Filed: 07/01/16 17:28> <Viola Vickers - Last Filed: 07/02/16 18:03> - General Chief Complaint: CVA/TIA Stated Complaint: CONFUSED Time Seen by Provider: 07/01/16 16:36 Past History <Ella Payan - Last Filed: 07/01/16 18:26> - Past Medical History HTN: Yes Hypercholesterolemia: Yes Other medical history: POSSIBLE - Psycho/Social/Smoking Cessation Hx Suicidal Ideation: No Smoking History: Never smoked Have you smoked in the past 12 months: No Hx Alcohol Use: Yes Drug/Substance Use Hx: No Substance Use Type: Alcohol Hx Substance Use Treatment: No <Viola Vickers - Last Filed: 07/02/16 18:03> - Past Medical History Allergies/Adverse Reactions: Allergies Allergy/AdvReac Type Severity Reaction Status Date / Time Sulfa (Sulfonamide Allergy Intermediate Verified 07/01/16 16:35 Antibiotics) Home Medications: Ambulatory Orders Calcium Carbonate/Vitamin D3 [Calcium 600-Vit D3 200 Tablet] 1 each PO DAILY tablet 08/28/13 Cholecalciferol (Vitamin D3) [Vitamin D3] 2,000 unit PO AM capsule 09/28/13 Simvastatin 10 mg PO DAILY 05/26/16 Lisinopril [Prinivil] 10 mg PO DAILY #30 tablet 05/28/16 Sodium Chloride Tablet - 1 gm PO TID #90 tablet 05/28/16 Review of Systems - Review of Systems Able to Perform ROS?: Yes Comments:: 07/01/16 16:58 12 point review of systems is as per history of present illness and otherwise negative <Ella Payan - Last Filed: 07/01/16 18:26> *Physical Exam - Vital Signs Last Vital Signs Temp Pulse Resp BP Pulse Ox 94 H 18 147/77 100 07/01/16 16:33 07/01/16 16:33 07/01/16 16:33 07/01/16 16:33 <Ella Payan - Last Filed: 07/01/16 18:26> - Vital Signs Last Vital Signs Temp Pulse Resp BP Pulse Ox 94 H 18 147/77 100 07/01/16 16:33 07/01/16 16:33 07/01/16 16:33 07/01/16 16:33 - Physical Exam Comments: 07/01/16 16:47 Physical exam Last Vital Signs Temp Pulse Resp BP Pulse Ox 94 H 18 147/77 100 07/01/16 16:33 07/01/16 16:33 07/01/16 16:33 07/01/16 16:33 GENERAL: The patient is awake alert and oriented 1 She is able to answer simple questions but not making sense HEAD: Normal with no signs of trauma. EYES: Pupils equal, round and reactive to light, extraocular movements intact, sclera anicteric, conjunctiva are normal. ENT: nares patent, oropharynx clear without exudates. Moist mucous membranes. NECK: Normal range of motion, supple LUNGS: Breath sounds equal, clear to auscultation bilaterally. No wheezes, and no crackles. HEART: Regular rate and rhythm, normal S1 and S2 without murmur, rub or gallop. ABDOMEN: Soft, nontender, normoactive bowel sounds. No guarding, no rebound. No masses appreciated. EXTREMITIES: Normal range of motion, no edema. No clubbing or cyanosis. No cords, erythema, or tenderness. NEURO: Mental status: The patient is oriented x1. Cranial nerves: Cranial nerves II through XII are intact There is a subtle facial asymmetry, but her significant other states that she always looks like this The cranial nerves are otherwise intact and she is able to smile close her eyes and raises her eyebrows equally Motor: The upper extremities are 5 over 5 in all muscle groups. The lower extremities are 5 over 5 in all muscle groups. Sensation: Sensation is intact to light touch throughout. Gait: Normal. PSYCH: Normal mood, normal affect. SKIN: Warm, Dry, normal turgor, no rashes or lesions noted. <Viola Vickers - Last Filed: 07/02/16 18:03> NIH Stroke Scale - Initial Evaluation Level of consciousness: Alert Ask patient the month and their age: Both incorrect Ask patient to open & close eyes; make fist and let go: Obeys both correctly Best gaze (horizontal eye movement): Normal Visual field testing: No visual field loss Facial paresis (Show teeth/raise eyebrows/close eyes tight): Minor paralysis ( flattened nasolabial fold, asymmetry on smiling) Motor Function: Left Arm: Normal Motor Function: Right Arm: Normal (extends arm 90 (or 45) degrees for 10 seconds without drift Motor Function: Left Leg: Normal (extends leg 30 degrees for 5 seconds without drift) Motor Function: Right Leg: Normal (extends leg 30 degrees for 5 seconds without drift) Limb Ataxia: No ataxia Sensory(Use pinprick test arms,legs,trunk,face/side to side): Normal Best language (Describe picture, name items, read sentences): No Aphasia Dysarthria (read several words): Normal articulation Extinction and Inattention: No abnormality - Total Score NIH Stroke Scale Score: 3 <Viola Vickers - Last Filed: 07/02/16 18:03> Critical Care Time/MDM Note - Medical Decision Making Note: 07/01/16 16:40 Dr. Zapata, Neurology, was paged at the office at this time requesting a call back for consult regarding this patient. The patient's cased was discussed with Dr. Zapata at 16:53. Dr. Zapata was called at 17:17 and the results of the patient's Head CT were discussed. She is not a TPA candidate at this time. 07/01/16 17:42 Dr. De La Cruz was paged at this time via phone answering service requesting a call back for doctor to doctor consult regarding ICU admission of this patient. 07/01/16 18:06 Dr. Madsen, ICU Slot Key Person, returned the call at this time and the patient's case was discussed. He accepts the patient for ICU admission under [facility] at this time. 07/01/16 18:23 Dr. Duncan was paged via phone answering service requesting a call back for doctor to doctor consult at this time. <Ella Payan - Last Filed: 07/01/16 18:26> Total Critical Care Time: 35 Critical Care Statement: The care of this patient involved high complexity decision making to prevent further life threatening deterioration of the patient 's condition and/or to evalute & treat vital organ system(s) failure or risk of failure. - Medical Decision Making Note: 07/01/16 16:50 66-year-old female with recent significant hyponatremia, and a hyponatremic seizure one month ago Most recent sodium level was 126 on the 06/26, which was lower than the prior Today she drank a large amount of oral contrast for a CT scan of the abdomen and pelvis with oral contrast, and then was sitting out in the hot sun on her deck, when suddenly she was noted to be confused, but no seizure was noted She is alert and oriented times one, but grossly nonfocal She does have a subtle facial asymmetry, but her states that "she always looks like this" and this is no different Her neurologic exam is otherwise nonfocal Patient was seen immediately on arrival by me and code stroke protocol instituted Most likely this is severe confusion/delirium from severe hyponatremia after water load today from the oral contrast, when she was already starting out with the sodium of [address] scan stat, and neurology paged EKG Normal sinus rhythm 92, normal axis Normal AV and IV conduction time Normal QTC Essentially normal EKG Case discussed with Dr. Palmer-neurology Awaiting CT scan, and lab work 07/01/16 17:[address] head-NAD Stat sodium-[address] Palmer, neurology again-patient is not a TPA candidate , as this is most likely toxic/metabolic due to severe hyponatremia 07/01/16 17:35 Labwork reviewed Laboratory Results - last 24 hr 07/01/16 07/01/16 07/01/16 16:40 16:40 16:40 WBC 8.6 D RBC 3.69 Hgb 11.8 Hct 33.9 MCV 92.0 MCHC 34.6 RDW 13.7 Plt Count 427 D MPV 6.9 L D Neutrophils % 65.6 Lymphocytes % 27.1 Monocytes % 6.1 Eosinophils % 0.5 Basophils % 0.7 INR 0.99 Sodium 120 L* Potassium 3.9 Chloride 90 L Carbon Dioxide 20 L Anion Gap 10 BUN 11 Creatinine 0.7 Creat Clearance w eGFR > 60 Random Glucose 165 H D Calcium 9.3 Total Bilirubin 0.5 D AST 31 ALT 22 D Alkaline Phosphatase 67 D Creatine Kinase Troponin I Total Protein 7.2 Albumin 3.8 Triglycerides 78 D Cholesterol 185 HDL Cholesterol 79 07/01/16 16:40 WBC RBC Hgb Hct MCV MCHC RDW Plt Count MPV Neutrophils % Lymphocytes % Monocytes % Eosinophils % Basophils % INR Sodium Potassium Chloride Carbon Dioxide Anion Gap BUN Creatinine Creat Clearance w eGFR Random Glucose Calcium Total Bilirubin AST ALT Alkaline Phosphatase Creatine Kinase 110 Troponin I < 0.03 L Total Protein Albumin Triglycerides Cholesterol HDL Cholesterol Case and all results discussed with hospitalist-will admit ICU Slot Key Person paged Impression-altered mental status/delirium, severe hyponatremia Hydrating gently with normal saline at 125 mL an hour 07/01/16 17:50 Patient starting to improve It's unclear if possibly the patient had an unwitnessed hyponatremic seizure, and was post ictal when she came in She was found sitting on the chair on the porch, and not on the ground She is getting normal saline now and starting to improve-it is unclear whether she is improving because she is less post ictal, or because her sodium level is improving Bicarbonate 20, possibly consistent with seizure Case and all results discussed with specialty sales representative-approves ICU bed Neurology at bedside 07/01/16 18:[address] Morley, covering Dr. Dooley now He would like the normal saline stopped at this time because he wants to direct the hypertonic saline administration when pt gets to ICU <Viola Vickers - Last Filed: 07/02/16 18:03> Discharge Disposition <Ella Payan - Last Filed: 07/01/16 18:26> - Discharge Dispostion Last Admission D/C Date: 05/28/16 Admit: Yes <Viola Vickers - Last Filed: 07/02/16 18:03> - Diagnosis Hyponatremia, Altered mental status, Seizure - Discharge Dispostion Condition at time of disposition: Critical - Referrals ED Treatment Course - LABORATORY CBC & Chemistry Diagram: 07/01/16 16:40 07/01/16 16:40 - ADDITIONAL ORDERS Additional order review: Laboratory Results 07/01/16 07/01/16 07/01/16 16:40 16:40 16:40 INR 0.99 Sodium 120 L* Potassium 3.9 Chloride 90 L Carbon Dioxide 20 L Anion Gap 10 BUN 11 Creatinine 0.7 Creat Clearance w eGFR > 60 Random Glucose 165 H D Calcium 9.3 Total Bilirubin 0.5 D AST 31 ALT 22 D Alkaline Phosphatase 67 D Creatine Kinase 110 Troponin I < 0.03 L Total Protein 7.2 Albumin 3.8 Triglycerides 78 D Cholesterol 185 HDL Cholesterol 79 07/01/16 16:40 RBC 3.69 MCV 92.0 MCHC 34.6 RDW 13.7 MPV 6.9 L D Neutrophils % 65.6 Lymphocytes % 27.1 Monocytes % 6.1 Eosinophils % 0.5 Basophils % 0.7 - RADIOLOGY Radiograph Interpretation: 07/01/16 17:[address] was read by Dr. Garcia at 17:10 Impression: No acute intracranial pathology is identified - Medications Given in the ED: ED Medications Discontinued Medications Generic Name Dose Route Start Last Admin Trade Name Freq PRN Reason Stop Dose Admin Sodium Chloride 1,000 mls @ 42 mls/hr 07/01/16 16:45 07/01/16 16:57 Normal Saline - IV 42 mls/hr ASDIR CASSIA Administration <Ella Payan - Last Filed: 07/01/16 18:26> - LABORATORY CBC & Chemistry Diagram: 07/02/16 05:20 07/02/16 11:10 <Viola Vickers - Last Filed: 07/02/16 18:03>
[2016-07-01 17:02] LABS: INR 0.99 (0.82-1.09); PROTHROMBIN TIME (PATIENT) 11.1 SEC (10.2-13.0)
[2016-07-01 17:07] LABS: BASOPHIL 0.7 % (0-2.0); EOSINOPHIL 0.5 % (0-4.5); MCH 31.8 pg (25.7-33.7); MCHC 34.6 g/dl (32.0-36.0); MEAN PLT VOLUME 6.9 fl (7.5-11.1); NEUTROPHILS 65.6 % (42.8-82.8); PLATELET COUNT 427 K/MM3 (134-434); RDW 13.7 % (11.6-15.6); WHITE BLOOD COUNT 8.6 K/mm3 (4.0-10.8)
[2016-07-01 17:09] LABS: CPK(DFH) 110 IU/L (26-140)
[2016-07-01 17:13] LABS: ALBUMIN 3.8 g/dl (3.5-5.0); ALK PHOS 67 U/L (32-92); ANION GAP 10 (8-16); BILIRUBIN,TOTAL 0.5 mg/dl (0.2-1.0); CALCIUM 9.3 mg/dl (8.4-10.2); CHOLESTEROL 185 mg/dl; CO2 20 mmol/L (22-28); CREATININE 0.7 mg/dl (0.6-1.3); GLUCOSE,RANDOM 165 mg/dl (74-106); SGOT/AST 31 U/L (10-42); SGPT/ALT 22 U/L (10-40); TOT PROT 7.2 g/dl (6.4-8.3)
[2016-07-01 17:26] LABS: TROPONIN I (DFP) < 0.03 ng/ml (0.03-0.50)
--- NOTE | 2016-07-01 18:20 | CON.NEURO ---
Consult - History of Present Illness History of Present Illness: 66 year old female historyof Hypertension, Hyperlipidemia . She recenlty been having hypontremia etiology undetermined. She today had ct of abdomen and pelvis as part of work up and she has drank lot of liquid. Around 3.30 her symptoms started and she was confused and ed doctor noticed there was left facial droopiness and said it is old. ct head i normal and sodium is 120 she is on statin and antihypertensive medication - Alcohol/Substance Use Hx Alcohol Use: Yes - Smoking History Smoking history: Never smoked Have you smoked in the past 12 months: No Home Medications - Allergies Allergies/Adverse Reactions: Allergies Allergy/AdvReac Type Severity Reaction Status Date / Time Sulfa (Sulfonamide Allergy Intermediate Verified 07/01/16 16:35 Antibiotics) - Home Medications Home Medications: Ambulatory Orders Calcium Carbonate/Vitamin D3 [Calcium 600-Vit D3 200 Tablet] 1 each PO DAILY tablet 08/28/13 Cholecalciferol (Vitamin D3) [Vitamin D3] 2,000 unit PO AM capsule 09/28/13 Simvastatin 10 mg PO DAILY 05/26/16 Lisinopril [Prinivil] 10 mg PO DAILY #30 tablet 05/28/16 Sodium Chloride Tablet - 1 gm PO TID #90 tablet 05/28/16 Physical Exam-Neuro Vital Signs: Vital Signs Temperature 98.4 F 07/01/16 17:03 Pulse Rate 89 07/01/16 17:03 Respiratory Rate 18 07/01/16 17:03 Blood Pressure 158/86 07/01/16 17:33 O2 Sat by Pulse Oximetry (%) 100 07/01/16 17:03 Labs: CBC, BMP 07/01/16 16:40 07/01/16 16:40 INR, PTT INR 0.99 (0.82-1.09) 07/01/16 16:40 NIH Stroke Scale - Total Score NIH Stroke Scale Score: 0 Imaging - Results Cat Scan: Report Reviewed Assessment/Plan cc episode of confusion 66 year old female historyof Hypertension, Hyperlipidemia . She recenlty been having hypontremia etiology undetermined. She today had ct of abdomen and pelvis as part of work up and she has drank lot of liquid. Around 3.30 her symptoms started and she was confused and ed doctor noticed there was left facial droopiness and said it is old. ct head i normal and sodium is 120 she is on statin and antihypertensive medication PH, SH, ROS was reviewed in chart Neurological Examiantion MS alert oriented x 3 , speech is back to normal CN all intact , motor moving all extremity sensation is normal nih score is 0 and bp is 132/86 able to swallow Assessemnt- Episode of confusion most likely due to hyponatremia. No witness seizure or tongue bite or episode of incontinence. Less likley to be seizures Plan-- no evidece fo stroke, not a candidate for tpa - no seizure medication now - continue supportive care and correction of Na. - May add baby asprin 81 mg once a day thanks for consult thom [place] md
[2016-07-01 18:40] LABS: PH,URINE 6.5 (4.5-8); URINE APPEARANCE Clear; URINE BILIRUBIN Negative (NEGATIVE); URINE BLOOD Trace-intact (NEGATIVE); URINE GLUCOSE (UA) Negative (NEGATIVE); URINE KETONE Negative (NEGATIVE); URINE NITRITE Negative (NEGATIVE); URINE PROTEIN Negative (NEGATIVE); URINE UROBILINOGEN 0.2 E.U/dl (0.2-1.0)
[2016-07-01 18:44] LABS: URINE COLOR YELLOW; URINE LEUK ESTERASE 1+ (NEGATIVE)
[2016-07-01 19:39] LABS: URINE CREATININE 47.2 mg/dL (20-320)
[2016-07-01 19:52] LABS: LDL CHOLESTEROL (ONLY SJRH) 90 mg/dL (5-100)
[2016-07-01 20:00] LABS: URINE MARIJUANA THC NEGATIVE ng/ml (CUTOFF=50)
--- NOTE | 2016-07-01 20:57 | HP ---
CHIEF COMPLAINT: Lethargy, AMS PCP: Dr. Felipe HISTORY OF PRESENT ILLNESS: This is a 66 y/o female with a past medical history of Hypertension, Hyperlipidemia, Seizure (?secondary to Hyponatermia 05/26/16), Anxiety, OA. Who presents to the ED from home found by her lethargic, confused speaking incomprehensible. Per patient she had a cat scan of the abdomen with oral contrast for hyponatremia earlier in the day. Patient reports drinking lots of water per instruction after the cat scan. She reports having 3-4 episodes of watery diarrhea which she attributes to the oral contrast. Patient reports while at home she felt "funny" with blurred vision, she went outside and sat on her deck for fresh air. She reports hearing her family stand over her asking her questions, but she could not respond. She reports feeling better since receiving the IV fluids. Patient denies fever, chills, cough, SOB, dizziness, ALLRED , CP, AP, N/V, constipation, dysuria. 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[employer] Family History: Allergies Sulfa (Sulfonamide Antibiotics) Allergy (Intermediate, Verified 07/01/16 16:35) HOME MEDICATIONS: Home Medications Medication Instructions Recorded Calcium Carbonate/Vitamin D3 1 each PO DAILY tablet 08/28/13 [Calcium 600-Vit D3 200 Tablet] Cholecalciferol (Vitamin D3) 2,000 unit PO AM capsule 09/28/13 [Vitamin D3] Simvastatin 10 mg PO DAILY 05/26/16 Lisinopril [Prinivil] 10 mg PO DAILY #30 tablet 05/28/16 Sodium Chloride Tablet - 1 gm PO TID #90 tablet 05/28/16 REVIEW OF SYSTEMS CONSTITUTIONAL: Absent: fever, chills, diaphoresis, generalized weakness, malaise, loss of appetite, weight change HEENT: visual changes Absent: rhinorrhea, nasal congestion, throat pain, throat swelling, difficulty swallowing, mouth swelling, ear pain, eye pain CARDIOVASCULAR: Absent: chest pain, syncope, palpitations, irregular heart rate, lightheadedness , peripheral edema RESPIRATORY: Absent: cough, shortness of breath, dyspnea with exertion, orthopnea, wheezing, stridor, hemoptysis GASTROINTESTINAL: diarrhea Absent: abdominal pain, abdominal distension, nausea, vomiting, constipation, melena, hematochezia GENITOURINARY: Absent: dysuria, frequency, urgency, hesitancy, hematuria, flank pain, genital pain MUSCULOSKELETAL: Absent: myalgia, arthralgia, joint swelling, back pain, neck pain SKIN: Absent: rash, itching, pallor HEMATOLOGIC/IMMUNOLOGIC: Absent: easy bleeding, easy bruising, lymphadenopathy, frequent infections ENDOCRINE: Absent: unexplained weight gain, unexplained weight loss, heat intolerance, cold intolerance NEUROLOGIC: dizziness, unsteady gait, mental status changes Absent: headache, focal weakness or paresthesias, seizure, bladder or bowel incontinence PSYCHIATRIC: Absent: anxiety, depression, suicidal or homicidal ideation, hallucinations. PHYSICAL EXAMINATION Vital Signs - 24 hr 07/01/16 07/01/16 07/01/16 16:33 16:57 17:03 Temperature 98.4 F Pulse Rate 94 H Pulse Rate [ 89 Apical] Respiratory 18 18 Rate Blood Pressure 147/77 147/77 Blood Pressure 144/81 [Right Arm] O2 Sat by Pulse 100 100 Oximetry (%) 07/01/16 07/01/16 07/01/16 17:33 18:27 19:19 Temperature Pulse Rate 85 Pulse Rate [ 84 85 Apical] Respiratory 16 14 Rate Blood Pressure 158/86 Blood Pressure 148/96 167/99 [Right Arm] O2 Sat by Pulse 99 99 Oximetry (%) 07/01/16 20:21 Temperature Pulse Rate 83 Pulse Rate [ Apical] Respiratory 14 Rate Blood Pressure 144/76 Blood Pressure [Right Arm] O2 Sat by Pulse Oximetry (%) GENERAL: Awake, alert, and fully oriented, in no acute distress. HEAD: Normal with no signs of trauma. EYES: Pupils equal, round and reactive to light, extraocular movements intact, sclera anicteric, conjunctiva clear. No lid lag. EARS, NOSE, THROAT: Ears normal, nares patent, oropharynx clear without exudates. Dry mucous membranes. NECK: Normal range of motion, supple without lymphadenopathy, JVD, or masses. LUNGS: Breath sounds equal, clear to auscultation bilaterally. No wheezes, and no crackles. No accessory muscle use. HEART: Regular rate and rhythm, normal S1 and S2 without murmur, rub or gallop. ABDOMEN: Soft, nontender, not distended, normoactive bowel sounds, no guarding, no rebound, no masses. No hepatomegaly or splenomegaly. MUSCULOSKELETAL: Normal range of motion at all joints. No bony deformities or tenderness. No CVA tenderness. UPPER EXTREMITIES: 2+ pulses, warm, well-perfused. No cyanosis. No clubbing. No peripheral edema. LOWER EXTREMITIES: 2+ pulses, warm, well-perfused. No calf tenderness. No peripheral edema. NEUROLOGICAL: Cranial nerves II-XII intact. Normal speech. Normal gait. PSYCHIATRIC: Cooperative. Good eye contact. Appropriate mood and affect. SKIN: Warm, dry, normal turgor, no rashes or lesions noted, normal capillary refill. Laboratory Results - last 24 hr 07/01/16 07/01/16 07/01/16 16:40 16:40 16:40 WBC 8.6 D RBC 3.69 Hgb 11.8 Hct 33.9 MCV 92.0 MCHC 34.6 RDW 13.7 Plt Count 427 D MPV 6.9 L D Neutrophils % 65.6 Lymphocytes % 27.1 Monocytes % 6.1 Eosinophils % 0.5 Basophils % 0.7 INR 0.99 Sodium 120 L* Potassium 3.9 Chloride 90 L Carbon Dioxide 20 L Anion Gap 10 BUN 11 Creatinine 0.7 Creat Clearance w eGFR > 60 Random Glucose 165 H D Lactic Acid Calcium 9.3 Total Bilirubin 0.5 D AST 31 ALT 22 D Alkaline Phosphatase 67 D Creatine Kinase Troponin I Total Protein 7.2 Albumin 3.8 Triglycerides 78 D Cholesterol 185 Total LDL Cholesterol 90 HDL Cholesterol 79 Urine Color Urine Appearance Urine pH Ur Specific [place] Urine Protein Urine Glucose (UA) Urine Ketones Urine Blood Urine Nitrite Urine Bilirubin Urine Urobilinogen Ur Leukocyte Esterase Urine Creatinine Opiates Screen Methadone Screen Barbiturate Screen Phencyclidine Screen Ur Amphetamines Screen MDMA (Ecstasy) Screen Benzodiazepines Screen Cocaine Screen U Marijuana (THC) Screen Alcohol, Quantitative Blood Type Antibody Screen 07/01/16 07/01/16 07/01/16 16:40 16:40 17:17 WBC RBC Hgb Hct MCV MCHC RDW Plt Count MPV Neutrophils % Lymphocytes % Monocytes % Eosinophils % Basophils % INR Sodium Potassium Chloride Carbon Dioxide Anion Gap BUN Creatinine Creat Clearance w eGFR Random Glucose Lactic Acid Calcium Total Bilirubin AST ALT Alkaline Phosphatase Creatine Kinase 110 Troponin I < 0.03 L Total Protein Albumin Triglycerides Cholesterol Total LDL Cholesterol HDL Cholesterol Urine Color Urine Appearance Urine pH Ur Specific [place] Urine Protein Urine Glucose (UA) Urine Ketones Urine Blood Urine Nitrite Urine Bilirubin Urine Urobilinogen Ur Leukocyte Esterase Urine Creatinine Opiates Screen Methadone Screen Barbiturate Screen Phencyclidine Screen Ur Amphetamines Screen MDMA (Ecstasy) Screen Benzodiazepines Screen Cocaine Screen U Marijuana (THC) Screen Alcohol, Quantitative < 5.0 Blood Type O POSITIVE Antibody Screen Negative 07/01/16 07/01/16 07/01/16 18:20 18:22 18:22 WBC RBC Hgb Hct MCV MCHC RDW Plt Count MPV Neutrophils % Lymphocytes % Monocytes % Eosinophils % Basophils % INR Sodium Potassium Chloride Carbon Dioxide Anion Gap BUN Creatinine Creat Clearance w eGFR Random Glucose Lactic Acid 0.874 Calcium Total Bilirubin AST ALT Alkaline Phosphatase Creatine Kinase Troponin I Total Protein Albumin Triglycerides Cholesterol Total LDL Cholesterol HDL Cholesterol Urine Color Yellow Urine Appearance Clear Urine pH 6.5 Ur Specific [place] 1.015 Urine Protein Negative Urine Glucose (UA) Negative Urine Ketones Negative Urine Blood Trace-intact Urine Nitrite Negative Urine Bilirubin Negative Urine Urobilinogen 0.2 e.u/dl Ur Leukocyte Esterase 1+ H Urine Creatinine Opiates Screen Negative Methadone Screen Negative Barbiturate Screen Negative Phencyclidine Screen Negative Ur Amphetamines Screen Negative MDMA (Ecstasy) Screen Negative Benzodiazepines Screen Negative Cocaine Screen Negative U Marijuana (THC) Screen Negative Alcohol, Quantitative Blood Type Antibody Screen 07/01/16 18:30 WBC RBC Hgb Hct MCV MCHC RDW Plt Count MPV Neutrophils % Lymphocytes % Monocytes % Eosinophils % Basophils % INR Sodium Potassium Chloride Carbon Dioxide Anion Gap BUN Creatinine Creat Clearance w eGFR Random Glucose Lactic Acid Calcium Total Bilirubin AST ALT Alkaline Phosphatase Creatine Kinase Troponin I Total Protein Albumin Triglycerides Cholesterol Total LDL Cholesterol HDL Cholesterol Urine Color Urine Appearance Urine pH Ur Specific [place] Urine Protein Urine Glucose (UA) Urine Ketones Urine Blood Urine Nitrite Urine Bilirubin Urine Urobilinogen Ur Leukocyte Esterase Urine Creatinine 47.2 Opiates Screen Methadone Screen Barbiturate Screen Phencyclidine Screen Ur Amphetamines Screen MDMA (Ecstasy) Screen Benzodiazepines Screen Cocaine Screen U Marijuana (THC) Screen Alcohol, Quantitative Blood Type Antibody Screen ASSESSMENT/PLAN: This is a 66 y/o female with a PMHx of: HTN, HLD, Seizure (? secondary to Hyponatremia 05/26/16), Anxiety. Admitted to ICU for Severe Hyponatremia, AMS for further evaluation of their emergent condition. Plan 1. Severe Hyponatremia- ICU monitoring, Na correction, Seizure Precautions, Nephrology Consult 2. AMS- Neuro checks, Neuro Consult 3. HTN- Monitor BP, home meds in am 4. HLD - Home meds in am FEN - Fluid Restriction - Corrected Na 122 - NPO except some ice chips Problem List - Problem (1) Hyponatremia Assessment/Plan: - Likely related to hypovalemia hyponatremia vs SIADH vs Glucocorticoid Deficiency - ICU monitoring - Na 120 - Serum Osmolality 252 - Urine Osmolality 433 - Urine Na 122 - 0.9% NS given in ED, d/c per Nephrology - Will monitor BMP closely Q4-6H - Will start on D5W if Na trends up - Free Water restriction for now, may have small amt ice chips - Cortisol, ACTH r/o glucocorticoid deficiency - TSH in am - Strict INOs - Seizure Precautions Code(s): E87.1 - HYPO-OSMOLALITY AND HYPONATREMIA (2) Altered mental status Assessment/Plan: - Likely secondary to severe hyponatermia vs stroke vs seizure - ICU monitoring - NIHSS 0 - CT Head- neg ICH, mass or tumor - Neuro following - Na 120 - NS bolus, IVF given in ED - Fall Precautions - Seizure Precautions - Neuro checks Q2H - Monitor CBC, BMP Code(s): R41.82 - ALTERED MENTAL STATUS, UNSPECIFIED (3) Seizure Assessment/Plan: - Hx seizures possibly secondary to hyponatremia episode 05/2016 - Continue to monitor and treat with interventions accordingly - Tele monitoring - Seizure Precautions Code(s): R56.9 - UNSPECIFIED CONVULSIONS (4) Hypertension Assessment/Plan: - Controlled - Monitor BP - Continue home med with parameters - Monitor renal function Code(s): I10 - ESSENTIAL (PRIMARY) HYPERTENSION (5) Hyperlipidemia Assessment/Plan: - Continue home med - Monitor LFTs Code(s): E78.5 - HYPERLIPIDEMIA, UNSPECIFIED (6) DVT prophylaxis Assessment/Plan: - OOB - SCDs - Heparin SQ Code(s): TEA4599 - Visit type - Emergency Visit Emergency Visit: Yes ED Registration Date: 07/01/16 Care time: The patient presented to the Emergency Department on the above date and was hospitalized for further evaluation of their emergent condition. - New Patient This patient is new to me today: Yes Date on this admission: 07/01/16 - Critical Care Critical Care patient: Yes Total Critical Care Time (in minutes): 35 Critical Care Statement: The care of this patient involved high complexity decision making to prevent further life threatening deterioration of the patient 's condition and/or to evalute & treat vital organ system(s) failure or risk of failure.
[2016-07-01 21:34] LABS: URINE RBC 0-2 /hpf (0-3)
[2016-07-01] MEDS ORDERED: CHLORHEXIDINE GLUCONATE 4% CLEANSER FOR DECOLONIZATION TP SCH (22:00)
--- NOTE | 2016-07-01 22:34 | CONSULT ---
Consult Consult Specialty:: Pulmonary Critical Care Reason for Consultation:: Symptomatic Hyponatremia - History of Present Illness Chief Complaint: Symptomatic Hyponatremia History of Present Illness: This is a 66 y/o female with pmhx of recently diagnosed hyponatremia of undetermined etiology with seizure, HTN and hyperlipidemia who was in her usual state of health today when upon approx 3:30pm her son and noted she had an altered mental status with confusion and incoherent speech. Earlier today pt was scheduled for an abdominal/pelvic CT for etiology of known hyponatremia, which was completed, and afterwards was instructed to drink water to help flush the contrast out of her system. Pt also reports 3-4 large episodes of diffuse watery diarrhea most likely attributed to the PO contrast for the abdominal CT. Pt states that she was drinking a combination of gatorade and water throughout yesterday and today, with quantity difference given by patient and her . Pt states that she did not drink large amount of water, however her states that she drank at least 6-7 bottles of water today prior to her arrival to the ED. She was taken to the [place] ER and w/u revealed hyponatremia of 120. Pt was given NS bolus and started on NS maintenance drip. Pt then transferred to [facility] ICU for further medical care given severe hyponatremia with mild to moderate symptomatology. Upon arrival to the ICU pt was AAOx3, normal fluent speech pattern. Pt's states that she is significantly better when compared to earlier today. - History Source History Provided By: Patient Limitations to Obtaining History: No Limitations - Past Medical History Cardio/Vascular: Yes: HTN, Hyperlipdemia Endocrine: Yes: Other (Hyponatremia) - Alcohol/Substance Use Hx Alcohol Use: Yes Number of Drinks Daily: 2 History of Substance Use: reports: None - Smoking History Smoking history: Never smoked Have you smoked in the past 12 months: No Home Medications - Allergies Allergies/Adverse Reactions: Allergies Allergy/AdvReac Type Severity Reaction Status Date / Time Sulfa (Sulfonamide Allergy Intermediate Verified 07/01/16 16:35 Antibiotics) - Home Medications Home Medications: Ambulatory Orders Calcium Carbonate/Vitamin D3 [Calcium 600-Vit D3 200 Tablet] 1 each PO DAILY tablet 08/28/13 Cholecalciferol (Vitamin D3) [Vitamin D3] 2,000 unit PO AM capsule 09/28/13 Simvastatin 10 mg PO DAILY 05/26/16 Lisinopril [Prinivil] 10 mg PO DAILY #30 tablet 05/28/16 Sodium Chloride Tablet - 1 gm PO TID #90 tablet 05/28/16 Review of Systems - Review of Systems Constitutional: reports: Lethargy Eyes: reports: No Symptoms HENT: reports: No Symptoms Neck: reports: No Symptoms Cardiovascular: reports: No Symptoms Respiratory: reports: No Symptoms Gastrointestinal: reports: Diarrhea Genitourinary: reports: No Symptoms Breasts: reports: No Symptoms Reported Musculoskeletal: reports: Joint Pain. denies: Joint Swelling Integumentary: denies: Blister, Bruising, Rash, Wound Neurological: reports: Change in Speech, Confusion, Pre-Existing Deficit, Unsteady Gait. denies: Numbness, Parasthesia Endocrine: denies: Unexplained Weight Gain, Unexplained Weight Loss Hematology/Lymphatic: reports: No Symptoms Psychiatric: reports: No Symptoms Physical Exam Vital Signs: Vital Signs Temperature 98.4 F 07/01/16 17:03 Pulse Rate 83 07/01/16 20:21 Respiratory Rate 14 07/01/16 20:21 Blood Pressure 144/76 07/01/16 20:21 O2 Sat by Pulse Oximetry (%) 99 07/01/16 19:19 Constitutional: Yes: Well Nourished, No Distress, Calm Eyes: Yes: WNL, Conjunctiva Clear, EOM Intact, PERRL HENT: Yes: WNL, Atraumatic, Normocephalic Neck: Yes: WNL, Supple, Trachea Midline Cardiovascular: Yes: WNL, Regular Rate and Rhythm, S1, S2. No: Bruit, Gallop, Murmur, Rub Respiratory: Yes: WNL, Regular, CTA Bilaterally. No: Accessory Muscle Use, Rales, Rhonchi Gastrointestinal: Yes: WNL, Normal Bowel Sounds, Soft. No: Distention, Palpable Mass, Pulsatile Mass, Tenderness, Vomiting ...Rectal Exam: Yes: Deferred Extremities: No: Calf Tenderness, Deformity, Delayed Capillary Refill, Erythema Edema: No Peripheral Pulses WNL: Yes Integumentary: Yes: WNL Neurological: Yes: WNL, Alert, Oriented, Babinski negative, Cran Nerves II-XII Intact, Other (No dysdiadokinesis, No dysmetria, Finger nose finger intact bilat ; Heel-nickerson intact bilaterally; (-)Romberg, Rapid alternating movements intact, sensation intact bilaterally throughout). No: Aphasia, Asterixis, Ataxia, Confusion, Dysarthria, Facial Droop, Lethargy, Loss of Sensation, Numbness, Paresthesia, Tingling, Tremors, Unsteady Gait, Weakness ...Motor Strength: WNL (5/5 throughout) Labs: CBCD WBC 8.6 K/mm3 (4.0-10.8) D 07/01/16 16:40 RBC 3.69 M/mm3 (3.60-5.2) 07/01/16 16:40 Hgb 11.8 GM/dl (10.7-15.3) 07/01/16 16:40 Hct 33.9 % (32.4-45.2) 07/01/16 16:40 MCV 92.0 fl (80-96) 07/01/16 16:40 MCHC 34.6 g/dl (32.0-36.0) 07/01/16 16:40 RDW 13.7 % (11.6-15.6) 07/01/16 16:40 Plt Count 427 K/MM3 (134-434) D 07/01/16 16:40 MPV 6.9 fl (7.5-11.1) L D 07/01/16 16:40 CMP Sodium 120 mmol/L (136-145) L* 07/01/16 16:40 Potassium 3.9 mmol/L (3.5-5.1) 07/01/16 16:40 Chloride 90 mmol/L (98-107) L 07/01/16 16:40 Carbon Dioxide 20 mmol/L (22-28) L 07/01/16 16:40 Anion Gap 10 (8-16) 07/01/16 16:40 BUN 11 mg/dl (7-18) 07/01/16 16:40 Creatinine 0.7 mg/dl (0.6-1.3) 07/01/16 16:40 Creat Clearance w eGFR > 60 (>60) 07/01/16 16:40 Random Glucose 165 mg/dl (74-106) H D 07/01/16 16:40 Calcium 9.3 mg/dl (8.4-10.2) 07/01/16 16:40 Total Bilirubin 0.5 mg/dl (0.2-1.0) D 07/01/16 16:40 AST 31 U/L (10-42) 07/01/16 16:40 ALT 22 U/L (10-40) D 07/01/16 16:40 Alkaline Phosphatase 67 U/L (32-92) D 07/01/16 16:40 Total Protein 7.2 g/dl (6.4-8.3) 07/01/16 16:40 Albumin 3.8 g/dl (3.5-5.0) 07/01/16 16:40 CARDIAC ENZYMES Creatine Kinase 110 IU/L (26-140) 07/01/16 16:40 Troponin I < 0.03 ng/ml (0.03-0.50) L 07/01/16 16:40 Imaging - Results Cat Scan: Report Reviewed Problem List - Problems (1) Altered mental status Code(s): R41.82 - ALTERED MENTAL STATUS, UNSPECIFIED (2) Hyponatremia Code(s): E87.1 - HYPO-OSMOLALITY AND HYPONATREMIA (3) Hypertension Code(s): I10 - ESSENTIAL (PRIMARY) HYPERTENSION (4) Hyperlipidemia Code(s): E78.5 - HYPERLIPIDEMIA, UNSPECIFIED Assessment/Plan A: This is a 66 y/o female with pmhx of recently diagnosed hyponatremia of undetermined etiology with seizure, HTN and hyperlipidemia who after an abdominal and pelvic CT to ascertain etiology of recently diagnosed hyponatremia , had consumed significant amount of free water as instructed to help clear the contrast load from her system. Subsequent to that pt became altered with incoeherent sppech and was found to have hyponatremia of 120 and serum osm of 250, c/w hypoosmolar hyponatremia. Urine osm is elevated and specific gravity elevated which suggests possible SIADH. P: -Repeat labs given improved mental status -Goal sodium correction of 6-8mEq/24hrs -Free water restriction until lab results return; may have ice chips in the interim -neuro checks q2 hrs -BMP q4hrs to assess for degree of correction -If altered will need to r/o withdrawl from ETOH vs worsening hyponatremia; consider low dose benzos -Consider restarting home medications in am tomorrow Thank you for this interesting consult. Pt is critically ill. CCT 45 mins not including procedures.
[2016-07-01 23:17] LABS: COCKROFT - GAULT 108.5195; CREATININE 0.6 mg/dL (0.55-1.02)
[2016-07-01] MEDS: MUPIROCIN 2% TOPICAL OINTMENT FOR DECOLONIZATION NS SCH (23:19)
[2016-07-02 00:58] LABS: CALCIUM 9.3 mg/dL (8.5-10.1); COCKROFT - GAULT 108.5195; CREATININE 0.6 mg/dL (0.55-1.02)
[2016-07-02] MEDS ORDERED: DEXTROSE 5%-WATER - 1,000 ML IV SCH ×2 (01:00→15:16)
[2016-07-02 03:40] LABS: COCKROFT - GAULT 108.5195; CREATININE 0.6 mg/dL (0.55-1.02)
[2016-07-02 06:15] LABS: BASOPHIL 0.5 % (0-2.0); EOSINOPHIL 0.3 % (0-4.5); MCH 31.5 pg (25.7-33.7); MCHC 33.4 g/dl (32.0-36.0); MEAN CELL VOLUME 94.5 fl (80-96); MEAN PLT VOLUME 6.7 fl (7.5-11.1); NEUTROPHILS 65.2 % (42.8-82.8); PLATELET COUNT 370 K/MM3 (134-434); RDW 14.7 % (11.6-15.6)
[2016-07-02 06:57] LABS: MAGNESIUM 2.2 mg/dL (1.8-2.4); PHOSPHOROUS 3.3 mg/dL (2.5-4.9); THYROID STIMULATING HORMONE 0.77 uIU/ml (0.358-3.74)
--- NOTE | 2016-07-02 08:46 | PN ---
Physical Exam: SUBJECTIVE: Patient seen and examined at bedside in ICU. AAO and at mental status baseline. Says she feels much more like herself. Denies any new symptoms or complaints. Afebrile overnight with no acute events noted. OBJECTIVE: Vital Signs Period Temp Pulse Resp BP Sys/Correa Pulse Ox Last 24 Hr 98 F-98.2 F 68-82 12-17 129-145/74-86 GENERAL: The patient is awake, alert, and fully oriented, in no acute distress. HEENT: Atraumatic, EOMI, PERRLA, No lymphadenopathy noted, moist membranes LUNGS: Breath sounds equal, clear to auscultation bilaterally, no wheezes, no crackles, no accessory muscle use. HEART: Regular rate and rhythm, S1, S2 without murmur, rub or gallop. ABDOMEN: Soft, nontender, nondistended, normoactive bowel sounds EXTREMITIES: 2+ pulses, warm, well-perfused, no edema. NEUROLOGICAL: Cranial nerves II through XII grossly intact. Normal speech, normal gait. PSYCH: Normal mood, normal affect. SKIN: Warm, dry, normal turgor, no rashes or lesions noted Laboratory Results - last 24 hr 07/01/16 07/02/16 07/02/16 22:50 00:20 03:10 WBC RBC Hgb Hct MCV MCHC RDW Plt Count MPV Neutrophils % Lymphocytes % Monocytes % Eosinophils % Basophils % Sodium 129 L 132 L 131 L Potassium 4.5 4.0 3.8 Chloride 91 L 94 L 95 L Carbon Dioxide 25 24 26 Anion Gap 13 14 10 BUN 6 L 6 L 6 L Creatinine 0.6 0.6 0.6 Random Glucose 111 H 112 H 124 H Calcium 9.0 9.3 9.0 Phosphorus Magnesium TSH 07/02/16 07/02/16 05:20 05:20 WBC 5.0 RBC 3.81 Hgb 12.0 Hct 36.0 MCV 94.5 MCHC 33.4 RDW 14.7 Plt Count 370 MPV 6.7 L Neutrophils % 65.2 Lymphocytes % 23.9 Monocytes % 10.1 Eosinophils % 0.3 Basophils % 0.5 Sodium Potassium Chloride Carbon Dioxide Anion Gap BUN Creatinine Random Glucose Calcium Phosphorus 3.3 Magnesium 2.2 TSH 0.77 D Active Medications Generic Name Dose Route Start Last Admin Trade Name Freq PRN Reason Stop Dose Admin Amlodipine Besylate 5 mg 07/02/16 10:00 07/02/16 10:34 Norvasc - PO Not Given DAILY CASSIA Atorvastatin Calcium 10 mg 07/02/16 22:00 Lipitor - PO HS CASSIA Chlorhexidine Gluconate 1 applic 07/01/16 22:00 07/01/16 23:20 Hibiclens For Decolonization - TP 1 applic HS CASSIA Administration Dextrose 1,000 mls @ 125 mls/hr 07/02/16 01:00 07/02/16 01:00 D5w - IV 125 mls/hr ASDIR CASSIA Administration Lisinopril 10 mg 07/02/16 10:00 07/02/16 10:34 Prinivil PO Not Given DAILY CASSIA Metoprolol Succinate 50 mg 07/02/16 10:00 07/02/16 09:48 Toprol Xl - PO 50 mg DAILY CASSIA Administration Mupirocin 1 applic 07/01/16 22:00 07/02/16 10:43 Bactroban Ointment (For Decolonization) - NS 07/06/16 21:59 1 applic BID CASSIA Administration Sodium Chloride 1 gm 07/02/16 14:00 07/02/16 13:50 Sodium Chloride Tablet - PO 1 gm TID CASSIA Administration ASSESSMENT/PLAN: 66 year old female with PMH of HTN, HLD, Hyponatremia (diagnosed after seizure 1month ago) and anxety who presented to ICU with hyponatremia yesterday. #Hyponatremia, with AMS & incoherent speech -sodium increased with IVF administration to 130 -mental status now at baseline -D5-Water for now -sodium tablets TID -needs nephrology workup for etiology of hyponatremia -seizure precautions #HTN -continue home meds: Norvasc, Lisinopril, Lipitor, Toprol Prophylaxis -SCD's -Regular diet -IVF as above -monitor electrolytes Visit type - Emergency Visit Emergency Visit: Yes ED Registration Date: 07/01/16 Care time: The patient presented to the Emergency Department on the above date and was hospitalized for further evaluation of their emergent condition. - New Patient This patient is new to me today: Yes Date on this admission: 07/02/16 - Critical Care Critical Care patient: Yes Total Critical Care Time (in minutes): 40 Critical Care Statement: The care of this patient involved high complexity decision making to prevent further life threatening deterioration of the patient 's condition and/or to evalute & treat vital organ system(s) failure or risk of failure.
[2016-07-02 09:07] LABS: CALCIUM 9.4 mg/dL (8.5-10.1); COCKROFT - GAULT 89.7855; CREATININE 0.7 mg/dL (0.55-1.02)
[2016-07-02] MEDS: amLODIPine BESYLATE 5 MG TABLET (FP) PO SCH ×2 (09:48→10:34)
[2016-07-02] MEDS: LISINOPRIL 10 MG TABLET (FP) PO SCH ×2 (09:48→10:34)
[2016-07-02] MEDS ORDERED: METOPROLOL SUCCINATE 50 MG TAB.SR.24H (FP) PO SCH (10:00)
[2016-07-02] MEDS: MUPIROCIN 2% TOPICAL OINTMENT FOR DECOLONIZATION NS SCH (10:43)
[2016-07-02 11:46] LABS: CALCIUM 9.5 mg/dL (8.5-10.1); COCKROFT - GAULT 78.557; CREATININE 0.8 mg/dL (0.55-1.02)
[2016-07-02] MEDS ORDERED: PT OWN MED DRAWER 7, Y5N ONE (13:48)
[2016-07-02] MEDS ORDERED: SODIUM CHLORIDE 1 GM TABLET PO SCH (14:00)
--- NOTE | 2016-07-02 14:25 | EKG ---
Test Reason : Blood Pressure : / mmHG Vent. Rate : 092 BPM Atrial Rate : 092 BPM P-R Int : 106 ms QRS Dur : 080 ms QT Int : 370 ms P-R-T Axes : 038 019 054 degrees QTc Int : 457 ms SINUS RHYTHM WITH SHORT OR LEFT VENTRICULAR HYPERTROPHY WHEN COMPARED WITH ECG OF 26-MAY-2016 16:44, Criteria for LVH is now present Confirmed by AGUSTÍN HERR MD ([id number]) on 07/02/2016 2:25:03 PM Referred By: MD HOLLIDAY Confirmed By:AGUSTÍN HERR MD
--- NOTE | 2016-07-02 14:41 | PN ---
Teaching Attending Note Name of Resident: Rivas Salcedo ATTENDING PHYSICIAN STATEMENT I saw and evaluated the patient. I reviewed the resident's note and discussed the case with the resident. I agree with the resident's findings and plan as documented. SUBJECTIVE: Pt seen and examined in the ICU. Feels back to baseline. Mental status at baseline. No nausea or headache. OBJECTIVE: Last Vital Signs Temp Pulse Resp BP Pulse Ox 97.9 F 82 16 126/70 99 07/02/16 14:00 07/02/16 14:00 07/02/16 14:00 07/02/16 14:00 07/02/16 10:25 Intake & Output 06/29/16 06/30/16 07/01/16 07/02/16 23:59 23:59 23:59 23:59 Intake Total 625 Balance 625 Weight 160 lb 154 lb 7 oz Gen: NAD at rest Heart: RRR Lung: decreased breath sounds at the bases Abd: soft, nontender Ext: no edema CBC, BMP 07/02/16 05:20 07/02/16 11:10 Active Medications Amlodipine Besylate (Norvasc -) 5 mg PO DAILY [facility] Last Admin: 07/02/16 10:34 Dose: Not Given Atorvastatin Calcium (Lipitor -) 10 mg PO [facility] Chlorhexidine Gluconate (Hibiclens For Decolonization -) 1 applic TP HS [facility] Last Admin: 07/01/16 23:20 Dose: 1 applic Dextrose (D5w -) 1,000 mls @ 125 mls/hr IV ASDIR [facility] Last Admin: 07/02/16 01:00 Dose: 125 mls/hr Lisinopril (Prinivil) 10 mg PO DAILY [facility] Last Admin: 07/02/16 10:34 Dose: Not Given Metoprolol Succinate (Toprol Xl -) 50 mg PO DAILY [facility] Last Admin: 07/02/16 09:48 Dose: 50 mg Mupirocin (Bactroban Ointment (For Decolonization) -) 1 applic NS BID [facility] Stop: 07/06/16 21:59 Last Admin: 07/02/16 10:43 Dose: 1 applic Sodium Chloride (Sodium Chloride Tablet -) 1 gm PO TID [facility] Last Admin: 07/02/16 13:50 Dose: 1 gm ASSESSMENT AND PLAN: Hyponatremia improving Altered Mental Status resolved HTN Hyperlipidemia - IVF per renal - salt tabs - monitor sodium level - resume home meds - renal f/u - PO as tolerated - DVT prophylaxis - can monitor on floor
--- NOTE | 2016-07-02 16:06 | CONSULT ---
Consult Consult Specialty:: Nephrology Reason for Consultation:: hyponatremia - History of Present Illness Chief Complaint: presented with confusion and possible seizure History of Present Illness: Pt is a 66 year old female with pmhx of hyponatremia, anxiety, and seizure who presented to the ER after an episode of confusion and possible seizure. Pt was found to be hyponatremic and I was called to evaluate her. She has history of hyponatremic and did have a workup. She is currently awake and alert. She took oral contrast for a ct scan after which she developed multiple episodes of diarrhea. She was trying to drink water to compensate. She was also started sertraline for anxiety. Her last outpt sodium was 126. She has not follow with me in the office. She denies headache or loss of balance. 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 Cardio/Vascular: Yes: HTN, Hyperlipdemia Endocrine: Yes: Other (Hyponatremia) - Alcohol/Substance Use Hx Alcohol Use: Yes Number of Drinks Daily: 2 History of Substance Use: reports: None - Smoking History Smoking history: Never smoked Have you smoked in the past 12 months: No Home Medications - Allergies Allergies/Adverse Reactions: Allergies Allergy/AdvReac Type Severity Reaction Status Date / Time Sulfa (Sulfonamide Allergy Intermediate Verified 07/01/16 16:35 Antibiotics) - Home Medications Home Medications: Ambulatory Orders Calcium Carbonate/Vitamin D3 [Calcium 600-Vit D3 200 Tablet] 1 each PO DAILY tablet 08/28/13 Cholecalciferol (Vitamin D3) [Vitamin D3] 2,000 unit PO AM capsule 09/28/13 Simvastatin 10 mg PO DAILY 05/26/16 Lisinopril [Prinivil] 10 mg PO DAILY #30 tablet 05/28/16 Sodium Chloride Tablet - 1 gm PO TID #90 tablet 05/28/16 Family Disease History - Family Disease History Other Family History: pts neice has hyponatremia Review of Systems - Review of Systems Constitutional: reports: No Symptoms Eyes: reports: No Symptoms HENT: reports: No Symptoms Neck: reports: No Symptoms Cardiovascular: reports: No Symptoms Respiratory: reports: No Symptoms Gastrointestinal: reports: No Symptoms Genitourinary: reports: No Symptoms Musculoskeletal: reports: No Symptoms Integumentary: reports: No Symptoms Neurological: reports: Change in LOC Endocrine: reports: No Symptoms Hematology/Lymphatic: reports: No Symptoms Psychiatric: reports: No Symptoms Physical Exam Vital Signs: Vital Signs Temperature 97.9 F 07/02/16 14:00 Pulse Rate 82 07/02/16 14:00 Respiratory Rate 16 07/02/16 14:00 Blood Pressure 126/70 07/02/16 14:00 O2 Sat by Pulse Oximetry (%) 99 07/02/16 10:25 Constitutional: Yes: Calm Eyes: Yes: Conjunctiva Clear HENT: Yes: Atraumatic Neck: Yes: Supple Cardiovascular: Yes: S1, S2 Respiratory: Yes: CTA Bilaterally Gastrointestinal: Yes: Normal Bowel Sounds, Soft Renal/: Yes: WNL Musculoskeletal: Yes: Muscle Weakness Edema: Yes Edema: LLE: Trace, RLE: Trace Neurological: Yes: Oriented Psychiatric: Yes: Oriented Labs: CBC, BMP 07/02/16 05:20 07/02/16 11:10 Laboratory Tests 05/26/16 05/26/16 05/27/16 16:15 21:54 00:30 Sodium 126 L 124 L* Serum Osmolality TSH Cortisol AM Sample Urine Osmolality Ur Random Sodium 101 05/27/16 05/27/16 05/27/16 00:40 07:00 07:45 Sodium 127 L Serum Osmolality 262 L TSH 0.90 D Cortisol AM Sample Urine Osmolality 367 Ur Random Sodium 05/27/16 05/27/16 05/28/16 16:00 16:18 07:50 Sodium 129 L 134 L Serum Osmolality TSH Cortisol AM Sample 20.3 Urine Osmolality Ur Random Sodium 06/02/16 06/12/16 06/26/16 09:18 09:20 09:42 Sodium 129 L 129 L 126 L Serum Osmolality TSH Cortisol AM Sample Urine Osmolality Ur Random Sodium 07/01/16 07/01/16 07/01/16 16:40 18:30 18:30 Sodium 120 L* Serum Osmolality 252 L TSH Cortisol AM Sample Urine Osmolality 433 Ur Random Sodium 07/01/16 07/02/16 07/02/16 22:50 00:20 03:10 Sodium 129 L 132 L 131 L Serum Osmolality TSH Cortisol AM Sample Urine Osmolality Ur Random Sodium 07/02/16 07/02/16 05:20 11:10 Sodium 130 L 130 L Serum Osmolality TSH 0.77 D Cortisol AM Sample Urine Osmolality Ur Random Sodium Imaging - Results Cat Scan: Report Reviewed (ct head, chest and abd done) Problem List - Problems (1) DVT prophylaxis Code(s): [id number] - (2) Hyperlipidemia Code(s): E78.5 - HYPERLIPIDEMIA, UNSPECIFIED (3) Hypertension Code(s): I10 - ESSENTIAL (PRIMARY) HYPERTENSION (4) Hyponatremia Code(s): E87.1 - HYPO-OSMOLALITY AND HYPONATREMIA (5) Seizure Code(s): R56.9 - UNSPECIFIED CONVULSIONS Assessment/Plan Current Medications Generic Name Dose Route Start Last Admin Trade Name [place] PRN Reason Stop Dose Admin Amlodipine Besylate 5 mg 07/03/16 10:00 Norvasc - PO DAILY [facility] Atorvastatin Calcium 10 mg 07/02/16 22:00 Lipitor - PO HS [facility] Dextrose 1,000 mls @ 125 mls/hr 07/02/16 15:16 D5w - IV ASDIR [facility] Lisinopril 10 mg 07/03/16 10:00 Prinivil PO DAILY [facility] Metoprolol Succinate 50 mg 07/03/16 10:00 Toprol Xl - PO DAILY [facility] Sodium Chloride 1 gm 07/02/16 22:00 Sodium Chloride Tablet - PO TID [facility] Impression: 1. Hyponatremia 2. HTN 3. anxiety 4. seizure 5. hyperlipidemia Plan - sodium is improved - pt has chronic hyponatremia, SIADH vs reset osmostat - cont with free water restriction and sodium tabs - hyponatremia exacerbated by diarrhea and solute loss. Sertraline will also cause hyponatremia, recommend stopping. - can stop d5w - will need colonoscopy - will need outpt follow up - this is the pts second seizure, recommend further evaluation by neuro, consider EEG Dr Duncan
[2016-07-02 18:11] LABS: CALCIUM 9.6 mg/dL (8.5-10.1); COCKROFT - GAULT 78.557; CREATININE 0.8 mg/dL (0.55-1.02)
--- NOTE | 2016-07-02 18:47 | PN ---
Physical Exam: SUBJECTIVE: Patient seen and examined OBJECTIVE: Vital Signs Period Temp Pulse Resp BP Sys/Correa Pulse Ox Last 24 Hr 97.9 F-98.3 F 68-96 12-20 102-145/62-88 99 GENERAL: The patient is awake, alert, and fully oriented, in no acute distress. HEAD: Normal with no signs of trauma. EYES: PERRL, extraocular movements intact, sclera anicteric, conjunctiva clear. No ptosis. ENT: Ears normal, nares patent, oropharynx clear without exudates, moist mucous membranes. NECK: Trachea midline, full range of motion, supple. LUNGS: Breath sounds equal, clear to auscultation bilaterally, no wheezes, no crackles, no accessory muscle use. HEART: Regular rate and rhythm, S1, S2 without murmur, rub or gallop. ABDOMEN: Soft, nontender, nondistended, normoactive bowel sounds, no guarding, no rebound, no hepatosplenomegaly, no masses. EXTREMITIES: 2+ pulses, warm, well-perfused, no edema. NEUROLOGICAL: Cranial nerves II through XII grossly intact. Normal speech, gait not observed. PSYCH: Normal mood, normal affect. SKIN: Warm, dry, normal turgor, no rashes or lesions noted Laboratory Results - last 24 hr 07/01/16 07/02/16 07/02/16 22:50 00:20 03:10 WBC RBC Hgb Hct MCV MCHC RDW Plt Count MPV Neutrophils % Lymphocytes % Monocytes % Eosinophils % Basophils % Sodium 129 L 132 L 131 L Potassium 4.5 4.0 3.8 Chloride 91 L 94 L 95 L Carbon Dioxide 25 24 26 Anion Gap 13 14 10 BUN 6 L 6 L 6 L Creatinine 0.6 0.6 0.6 Random Glucose 111 H 112 H 124 H Calcium 9.0 9.3 9.0 Phosphorus Magnesium TSH 07/02/16 07/02/16 07/02/16 05:20 05:20 05:20 WBC 5.0 RBC 3.81 Hgb 12.0 Hct 36.0 MCV 94.5 MCHC 33.4 RDW 14.7 Plt Count 370 MPV 6.7 L Neutrophils % 65.2 Lymphocytes % 23.9 Monocytes % 10.1 Eosinophils % 0.3 Basophils % 0.5 Sodium 130 L Cancelled Potassium 4.0 Cancelled Chloride 95 L Cancelled Carbon Dioxide 27 Cancelled Anion Gap 8 Cancelled BUN 6 L Cancelled Creatinine 0.7 Cancelled Random Glucose 123 H Cancelled Calcium 9.4 Cancelled Phosphorus 3.3 Magnesium 2.2 TSH 0.77 D 07/02/16 07/02/16 11:10 17:15 WBC RBC Hgb Hct MCV MCHC RDW Plt Count MPV Neutrophils % Lymphocytes % Monocytes % Eosinophils % Basophils % Sodium 130 L 126 L Potassium 4.2 3.9 Chloride 92 L 90 L Carbon Dioxide 27 27 Anion Gap 11 9 BUN 8 D 12 D Creatinine 0.8 0.8 Random Glucose 95 D 103 Calcium 9.5 9.6 Phosphorus Magnesium TSH Active Medications Generic Name Dose Route Start Last Admin Trade Name Freq PRN Reason Stop Dose Admin Amlodipine Besylate 5 mg 07/03/16 10:00 Norvasc - PO DAILY [facility] Atorvastatin Calcium 10 mg 07/02/16 22:00 Lipitor - PO HS [facility] Lisinopril 10 mg 07/03/16 10:00 Prinivil PO DAILY [facility] Metoprolol Succinate 50 mg 07/03/16 10:00 Toprol Xl - PO DAILY [facility] Sodium Chloride 1 gm 07/02/16 22:00 Sodium Chloride Tablet - PO TID [facility] ASSESSMENT/PLAN: This is a 66 y/o female with a past medical history of Hypertension, Hyperlipidemia, Seizure (?secondary to Hyponatermia 05/26/16), Anxiety, OA. Who presents to the ED from home found by her lethargic, confused speaking incomprehensible. Per patient she had a cat scan of the abdomen with oral contrast for hyponatremia earlier in the day. Patient reports drinking lots of water per instruction after the cat scan. She reports having 3-4 episodes of watery diarrhea which she attributes to the oral contrast. Patient reports while at home she felt "funny" with blurred vision, she went outside and sat on her deck for fresh air. She reports hearing her family stand over her asking her questions, but she could not respond. She reports feeling better since receiving the IV fluids. Patient denies fever, chills, cough, SOB, dizziness, ALLRED , CP, AP, N/V, constipation, dysuria. ER course was notable for: (1) NA 120 (2) Serum Osmo 252, Urine Osmo 454, Urine Na 122 (3) CT Head- neg ICH, mass or lesion Hypervolemic Hyponatremia --patient has chronic hyponatremia, exacerbated now from excess water intake , alcohol intake, and failure to take sodium tabs prescribed by PCP --is at baseline congitive functioning --fluid restrict, salt tabs Visit type - Emergency Visit Emergency Visit: Yes ED Registration Date: 07/01/16 Care time: The patient presented to the Emergency Department on the above date and was hospitalized for further evaluation of their emergent condition. - New Patient This patient is new to me today: Yes Date on this admission: 07/14/16 - Critical Care Critical Care patient: No
[2016-07-02] MEDS: SODIUM CHLORIDE 1 GM TABLET PO SCH (21:05)
[2016-07-02] MEDS ORDERED: ATORVASTATIN CA 10 MG TABLET (FP) PO SCH ×2 (22:00)
--- NOTE | 2016-07-02 23:00 | PN ---
Progress Note (short form) - Note Progress Note: c episode of confusion 66 year old female historyof Hypertension, Hyperlipidemia . She recenlty been having hypontremia etiology undetermined. Yesterday she has episode of confusion following drinking lot of liquid for ct of abdomen and pelvis Around 3.30 her symptoms started and she was confused and ed doctor noticed there was left facial droopiness and said it is old. ct head i normal and sodium was 120 Now she is much better and back to her normal self she is on statin and antihypertensive medication PH, SH, ROS was reviewed in chart Neurological Examiantion MS alert oriented x 3 , speech is back to normal CN all intact , motor moving all extremity sensation is normal nih score is 0 a Assessemnt- Episode of confusion most likely due to hyponatremia. no evidence of seizures or stroke Plan no further recommendation from Neurological Point of View No need for EEG or AED at this time Please call us if you have any question Yasmany Zapata MD
[2016-07-03] MEDS: SODIUM CHLORIDE 1 GM TABLET PO SCH ×2 (05:41→13:58)
[2016-07-03] MEDS ORDERED: PATIENT'S OWN MEDICATION (NON-FORMULARY) (Amlodipine Besylate/Benazepril [Amlodipine-Benaz PO SCH (07:00)
[2016-07-03 08:28] LABS: CALCIUM 9.4 mg/dL (8.5-10.1)
[2016-07-03 08:32] LABS: COCKROFT - GAULT 90.1085; CREATININE 0.7 mg/dL (0.55-1.02)
[2016-07-03] MEDS ORDERED: LISINOPRIL 10 MG TABLET (FP) PO SCH (10:00)
[2016-07-03] MEDS ORDERED: amLODIPine BESYLATE 5 MG TABLET (FP) PO SCH (10:00)
[2016-07-03] MEDS ORDERED: METOPROLOL SUCCINATE 50 MG TAB.SR.24H (FP) PO SCH (10:00)
--- NOTE | 2016-07-03 13:14 | DS ---
Physical Exam: SUBJECTIVE: Patient seen and examined OBJECTIVE: Vital Signs Period Temp Pulse Resp BP Sys/Correa Pulse Ox Last 24 Hr 97.6 F-99.3 F 74-88 16-20 126-148/70-88 97 PHYSICAL EXAM GENERAL: The patient is awake, alert, and fully oriented, in no acute distress. HEAD: Normal with no signs of trauma. EYES: PERRL, extraocular movements intact, sclera anicteric, conjunctiva clear. ENT: Ears normal, nares patent, oropharynx clear without exudates, moist mucous membranes. NECK: Trachea midline, full range of motion, supple. LUNGS: Breath sounds equal, clear to auscultation bilaterally, no wheezes, no crackles, no accessory muscle use. HEART: Regular rate and rhythm, S1, S2 without murmur, rub or gallop. ABDOMEN: Soft, nontender, nondistended, normoactive bowel sounds, no guarding, no rebound, no hepatosplenomegaly, no masses. EXTREMITIES: 2+ pulses, warm, well-perfused, no edema. NEUROLOGICAL: Cranial nerves II through XII grossly intact. Normal speech, gait not observed. PSYCH: Normal mood, normal affect. SKIN: Warm, dry, normal turgor, no rashes or lesions noted. LABS Laboratory Results - last 24 hr 07/02/16 07/02/16 07/03/16 05:20 17:15 07:35 Sodium 126 L 131 L Potassium 3.9 4.1 Chloride 90 L 95 L Carbon Dioxide 27 27 Anion Gap 9 9 BUN 12 D 10 Creatinine 0.8 0.7 Random Glucose 103 99 Calcium 9.6 9.4 Cortisol AM Sample 11.8 HOSPITAL COURSE: Date of Admission:07/01/16 Date of Discharge: 07/03/16 Minutes to complete discharge: 35 Discharge Summary Reason For Visit: HYPONATREMIA Current Active Problems Altered mental status (Acute) DVT prophylaxis (Acute) Hyperlipidemia (Acute) Hypertension (Acute) Hyponatremia (Acute) Seizure (Acute) Condition: Improved - Instructions Diet, Activity, Other Instructions: You should continue to take your salt tabs as prescribed. Limit your fluid intake to 4-6 cups per 24 hours. You may resume taking your sertraline and discuss continued use of this medication with your primary care provider Dr. Felipe. It is recommended you refrain from alcohol. Return to the emergency department for any new or worsening symptoms. Referrals: Clay Felipe MD [Primary Care Provider] - Disposition: HOME - Home Medications Comprehensive Discharge Medication List: Ambulatory Orders Calcium Carbonate/Vitamin D3 [Calcium 600-Vit D3 200 Tablet] 1 each PO DAILY tablet 08/28/13 Cholecalciferol (Vitamin D3) [Vitamin D3] 2,000 unit PO AM capsule 09/28/13 Simvastatin 10 mg PO DAILY 05/26/16 Lisinopril [Prinivil] 10 mg PO DAILY #30 tablet 05/28/16 Sodium Chloride Tablet - 1 gm PO TID #90 tablet 05/28/16 This patient is new to me today: No Emergency Visit: Yes ED Registration Date: 07/01/16 Care time: The patient presented to the Emergency Department on the above date and was hospitalized for further evaluation of their emergent condition. Critical Care patient: No - Discharge Referral Referred to [facility] Med P.C[facility] Yes Physician Referral: Clay Felipe MD (Int Med)
[2016-07-03] MEDS ORDERED: PT OWN MED DRAWER 7, Y5N ONE (13:54)
--- NOTE | 2016-07-03 13:54 | PN ---
Progress Note, Physician History of Present Illness: Pt seen and examined at bedside. She is awake and alert. She denies headache or dizziness. - Current Medication List Current Medications: Active Medications Amlodipine Besylate (Norvasc -) 5 mg PO DAILY [facility] Last Admin: 07/03/16 09:22 Dose: 5 mg Atorvastatin Calcium (Lipitor -) 10 mg PO HS [facility] Last Admin: 07/02/16 21:05 Dose: 10 mg Lisinopril (Prinivil) 10 mg PO DAILY [facility] Last Admin: 07/03/16 09:22 Dose: 10 mg Metoprolol Succinate (Toprol Xl -) 50 mg PO DAILY [facility] Last Admin: 07/03/16 09:22 Dose: 50 mg Sodium Chloride (Sodium Chloride Tablet -) 1 gm PO TID [facility] Last Admin: 07/03/16 05:41 Dose: 1 gm - Objective Vital Signs: Vital Signs Temperature 99.3 F 07/03/16 10:00 Pulse Rate 88 07/03/16 10:00 Respiratory Rate 20 07/03/16 10:00 Blood Pressure 128/72 07/03/16 10:00 O2 Sat by Pulse Oximetry (%) 97 07/02/16 21:00 Constitutional: Yes: Calm Eyes: Yes: Conjunctiva Clear HENT: Yes: Atraumatic Neck: Yes: Supple Cardiovascular: Yes: S1, S2 Respiratory: Yes: CTA Bilaterally Gastrointestinal: Yes: Normal Bowel Sounds, Soft Genitourinary: Yes: WNL Musculoskeletal: Yes: WNL Edema: No Neurological: Yes: Oriented Psychiatric: Yes: Oriented Labs: CBC, BMP 07/02/16 05:20 07/03/16 07:35 INR, PTT INR 0.99 (0.82-1.09) 07/01/16 16:40 Problem List - Problems (1) DVT prophylaxis Code(s): ZFU2950 - (2) Hyperlipidemia Code(s): E78.5 - HYPERLIPIDEMIA, UNSPECIFIED (3) Hypertension Code(s): I10 - ESSENTIAL (PRIMARY) HYPERTENSION (4) Hyponatremia Code(s): E87.1 - HYPO-OSMOLALITY AND HYPONATREMIA (5) Seizure Code(s): R56.9 - UNSPECIFIED CONVULSIONS Assessment/Plan Current Medications Generic Name Dose Route Start Last Admin Trade Name Freq PRN Reason Stop Dose Admin Amlodipine Besylate 5 mg 07/03/16 10:00 07/03/16 09:22 Norvasc - PO 5 mg DAILY [facility] Administration Atorvastatin Calcium 10 mg 07/02/16 22:00 07/02/16 21:05 Lipitor - PO 10 mg HS [facility] Administration Lisinopril 10 mg 07/03/16 10:00 07/03/16 09:22 Prinivil PO 10 mg DAILY [facility] Administration Metoprolol Succinate 50 mg 07/03/16 10:00 07/03/16 09:22 Toprol Xl - PO 50 mg DAILY [facility] Administration Sodium Chloride 1 gm 07/02/16 22:00 07/03/16 05:41 Sodium Chloride Tablet - PO 1 gm TID [facility] Administration Impression: 1. Hyponatremia 2. HTN 3. anxiety 4. seizure 5. hyperlipidemia Plan - sodium is stable, pts normal is about 130 - she will follow on Wednesday to get it checked - discussed fluid and salt intake - recommend colonoscopy - would not restart sertraline, she has been on it for less than 2 weeks, discussed with PMD in community - cont with free water restriction and sodium tabs - hyponatremia exacerbated by diarrhea and solute loss - will need outpt follow up - this is the pts second seizure, recommend further evaluation by neuro, consider EEG Dr Duncan
[2016-07-03 15:18] VITALS: BP 129/77; PULSE 82; TEMP 98.1
[2016-07-03 16:29] LABS: ADRENOCORTICOTROPIC HORMONE 19.5 pg/mL (7.2-63.3)
== END 2016-07-03 16:14 | disposition home or self-care (01) | DRG 641 ==
LOC: FER 16:32 → JICU 21:45 → J6S 07-02 14:28
PROVIDERS: ADMIT Internal Medicine; ATTEND Nurse Practitioner Acute Care
DX: E87.1 Hypo-osmolality and hyponatremia (principal); R56.9 Unspecified convulsions; E78.5 Hyperlipidemia, unspecified; I10 Essential (primary) hypertension; F41.8 Other specified anxiety disorders; R41.82 Altered mental status, unspecified
CPT/HCPCS: 36415; 70450-TC; 71270-TC; 74178-TC; 80048; 80053; 80307; 81003; 81015; 82024; 82465; 82533; 82550; 82570; 83605; 83718; 83721; 83735; 83930; 83935; 84100; 84443; 84478; 84484; 85025; 85610; 86850; 86900; 86901; 93005; 99285-25; C1887

== ENCOUNTER 2019-04-17 18:00 | Inpatient (IN) | payer OTHER ==
--- NOTE | 2019-04-17 18:18 | PDOC ---
History of Present Illness - General Chief Complaint: Revisit, Lab Variance Stated Complaint: LOW SODIUM Time Seen by Provider: 04/17/19 18:18 - History of Present Illness Initial Comments: 04/19/19 07:12 Chief complaint: The patient has no specific complaints. Her states that she has become more confused over the last few days, with similar behavior to that experienced when she has been hyponatremic in the past. HPI: However, also states that she has worsening dementia and this is being evaluated by her primary physician Dr. Felipe. It is uncertain whether her declining mental status is due to worsening dementia or her recurrently low sodium levels. 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 This has occurred in the last 2 weeks she has seemed intermittently confused. Her speech has been less intelligible. She has appeared weak and fatigued. Review of systems: No fever/chills, URI symptoms, sore throat, cough, chest pain , shortness of breath, abdominal pain, nausea, vomiting, diarrhea, visual or focal neurologic symptoms, unsteadiness of gait. No urinary tract symptoms including dysuria or frequency, no vaginal bleeding or discharge. Remainder of systems reviewed and negative Past medical history: Elevated cholesterol, hyponatremia, recurrent, of uncertain etiology Social history: Worsening symptoms of dementia over the last few months including disorientation, confusion, speech difficulties. Lives with , who is particularly vigilant. No tobacco alcohol or drugs Family history: Reviewed and noncontributory Physical exam: Patient appears mildly confused, with stumbling speech, deferring frequently to her . She appears in no acute distress and is cooperative Afebrile, vital signs normal PERRLA 4 mm, fundi benign, ENT clear Neck supple without bruit mass or nodes Chest clear, full breath sounds bilaterally, no wheezes rales or rhonchi CV without murmur rub or gallop pulses full and symmetric no JVD or edema regular rate Abdomen soft nontender without mass organomegaly bowel sounds normal Neurological C2 to 12 intact. Generalized weakness but no focal sensory or motor deficits. Gait stable and unimpaired Extremities no CCE Skin clear, no rash, adequate turgor and wet mucous membranes Impression: Mental status change, more confused with speech difficulties, most likely Alzheimer's dementia, progressive. Also recurrent hyponatremia with recent lowered salt intake, may be partially responsible Plan: Electrolytes, chest x-ray and urinalysis to rule out occult infection, consider admission for further neurological evaluation and social service consultation. Signed out to Dr. Sykes 7 PM pending results of labs and further evaluation and treatment. Past History - Past Medical History Allergies/Adverse Reactions: Allergies Allergy/AdvReac Type Severity Reaction Status Date / Time Sulfa (Sulfonamide Allergy Intermediate Verified 04/17/19 18:07 Antibiotics) Home Medications: Ambulatory Orders Simvastatin 10 mg PO DAILY 05/26/16 Sodium Chloride Tablet - 1 gm PO TID #90 tablet 04/18/19 HTN: Yes Hypercholesterolemia: Yes Seizures: Yes (POSSIBLE) - Psycho Social/Smoking Cessation Hx Smoking History: Never smoked Have you smoked in the past 12 months: No Hx Alcohol Use: Yes Drug/Substance Use Hx: No Substance Use Type: Alcohol Hx Substance Use Treatment: No ED Treatment Course - LABORATORY CBC & Chemistry Diagram: 04/17/19 18:40 04/18/19 12:00 Discharge - Discharge Information Problems reviewed: Yes Clinical Impression/Diagnosis: Hyponatremia Condition: Improved - Admission Yes - Follow up/Referral - Patient Discharge Instructions - Post Discharge Activity
[2019-04-17 18:19] VITALS: BMI 33.3
[2019-04-17 19:14] LABS: ALBUMIN 3.6 g/dl (3.4-5.0); BILIRUBIN,TOTAL 0.6 mg/dl (0.2-1); CALCIUM 9.5 mg/dl (8.5-10); CREATININE 0.8 mg/dl (0.55-1.3); TOT PROT 7.5 g/dl (6.4-8.2)
[2019-04-17 19:15] LABS: POTASSIUM 4.7 mmol/L (3.5-5.1)
--- NOTE | 2019-04-17 19:24 | PDOC ---
*Physical Exam - Vital Signs Last Vital Signs Temp Pulse Resp BP Pulse Ox 97.7 F 93 H 16 147/87 98 04/17/19 18:06 04/17/19 18:06 04/17/19 18:06 04/17/19 18:06 04/17/19 18:06 ED Treatment Course - LABORATORY CBC & Chemistry Diagram: 04/17/19 18:40 04/17/19 18:40 - ADDITIONAL ORDERS Additional order review: Laboratory Results 04/17/19 18:40 Sodium 127 L Potassium 4.7 Chloride 92 L Carbon Dioxide 23 Anion Gap 12 BUN 13.0 Creatinine 0.8 Est GFR (CKD-EPI)AfAm 89.04 Est GFR (CKD-EPI)NonAf 76.83 Random Glucose 118 H Calcium 9.5 Total Bilirubin 0.6 AST 28 ALT 18 Alkaline Phosphatase 50 Total Protein 7.5 Albumin 3.6 ED Progress Note - Progress Note Progress Note: 04/17/19 19:22 Care of this patient was transferred to pr from Dr. Althea suresh at 1900 hrs. Patient is a 68-year-old female who has history of chronic hyponatremia. Patient takes 5 sodium tablets a day. Patient is nephrology recently started decreasing her sodium and now she comes in with confusion. Confusion is her usual presentation when her sodium drops. Patient sodium today is 127 so we will bring her in for sodium repletion. Discharge - Discharge Information Problems reviewed: Yes Clinical Impression/Diagnosis: Hyponatremia Condition: Good - Admission Yes - Follow up/Referral Referrals: Clay Felipe MD [Primary Care Provider] - - Patient Discharge Instructions - Post Discharge Activity
[2019-04-17] MEDS ORDERED: SODIUM CHLORIDE 1,000 ML IV SCH ×2 (19:30→22:00)
[2019-04-17 20:09] LABS: BASO % 0.3 % (0-2.0); EOS % 0.8 % (0-4.5); HEMATOCRIT 36.8 % (32.4-45.2); HEMOGLOBIN 12.4 GM/dL (10.7-15.3); MCH 31.3 pg (25.7-33.7); MCHC 33.6 g/dl (32.0-36.0); MEAN CELL VOLUME 93.3 fl (80-96); MEAN PLT VOLUME 7.2 fl (7.5-11.1); MONO % 6.4 % (3.8-10.2); NEUT % 68.5 % (42.8-82.8); PLATELET COUNT 485 K/MM3 (134-434); RBC 3.95 M/mm3 (3.60-5.2); RDW 14.2 % (11.6-15.6); WHITE BLOOD COUNT 7.8 K/mm3 (4.0-10.0)
--- NOTE | 2019-04-17 21:23 | HP ---
Admitting History and Physical - Primary Care Physician PCP: Clay Felipe - Admission Chief Complaint: Confusion History of Present Illness: This is a 68 y/o female with a PMHx of chronic Hyponatremia (takes Na tabs). Who presents to the ED with confusion. Per ED records: Patient is being seen by her music journalist who recently started decreasing her sodium tablets and now she comes in with confusion. Confusion is her usual presentation when her sodium drops. History Source: Medical Record Limitations to Obtaining History: Clinical Condition - Past Medical History SKIN THERAPIST: Yes: Seizure Cardiovascular: Yes: HTN, Hyperlipdemia Endocrine: Yes: Other (Hyponatremia) - Smoking History Smoking history: Never smoked Have you smoked in the past 12 months: No - Alcohol/Substance Use Hx Alcohol Use: Yes Number of Drinks Daily: 2 History of Substance Use: reports: None - Social History History of Recent Travel: No Home Medications - Allergies Allergies/Adverse Reactions: Allergies Allergy/AdvReac Type Severity Reaction Status Date / Time Sulfa (Sulfonamide Allergy Intermediate Verified 04/17/19 18:07 Antibiotics) - Home Medications Home Medications: Ambulatory Orders Cholecalciferol (Vitamin D3) [Vitamin D3] 2,000 unit PO AM capsule 09/28/13 Simvastatin 10 mg PO DAILY 05/26/16 Sodium Chloride Tablet - 1 gm PO TID #90 tablet 05/28/16 Family Medical History Family History: Unable to Obtain Review of Systems Unable to obtain ROS, reason: Clinical Condition Physical Examination Vital Signs: Vital Signs Temperature 97.7 F 04/17/19 18:06 Pulse Rate 88 04/17/19 21:06 Respiratory Rate 16 04/17/19 21:06 Blood Pressure 152/82 04/17/19 21:06 O2 Sat by Pulse Oximetry (%) 95 04/17/19 21:06 Constitutional: Yes: No Distress, Calm, Obese Eyes: Yes: WNL, Conjunctiva Clear, EOM Intact, PERRL HENT: Yes: Atraumatic, Normocephalic, Other (dry mucous membranes) Neck: Yes: WNL, Supple, Trachea Midline Cardiovascular: Yes: WNL, Regular Rate and Rhythm, S1, S2 Respiratory: Yes: WNL, Regular, CTA Bilaterally Gastrointestinal: Yes: WNL, Normal Bowel Sounds, Soft ...Rectal Exam: Yes: Deferred Renal/: Yes: WNL Breast(s): Yes: WNL Musculoskeletal: Yes: WNL Extremities: Yes: WNL Edema: Yes Edema: LLE: 1+, RLE: 1+ Peripheral Pulses WNL: Yes Integumentary: Yes: WNL Neurological: Yes: Alert, Confusion, Cran Nerves II-XII Intact ...Motor Strength: WNL Psychiatric: Yes: Alert Labs: CBC, BMP 04/17/19 18:40 04/17/19 18:40 Laboratory Results - last 24 hr 04/17/19 04/17/19 04/17/19 18:40 18:40 20:00 WBC 7.8 RBC 3.95 Hgb 12.4 Hct 36.8 MCV 93.3 MCH 31.3 MCHC 33.6 RDW 14.2 Plt Count 485 H D MPV 7.2 L Absolute Neuts (auto) 5.3 Neutrophils % 68.5 Lymphocytes % 24.0 Monocytes % 6.4 Eosinophils % 0.8 D Basophils % 0.3 Nucleated RBC % 0 Sodium 127 L Potassium 4.7 Chloride 92 L Carbon Dioxide 23 Anion Gap 12 BUN 13.0 Creatinine 0.8 Est GFR (CKD-EPI)AfAm 89.04 Est GFR (CKD-EPI)NonAf 76.83 Random Glucose 118 H Calcium 9.5 Total Bilirubin 0.6 AST 28 ALT 18 Alkaline Phosphatase 50 Total Protein 7.5 Albumin 3.6 Urine Color Yellow Urine Appearance Clear Urine pH 6.5 Urine Protein Negative Urine Glucose (UA) Negative Urine Ketones Negative Urine Blood Negative Urine Nitrite Negative Urine Bilirubin Negative Urine Urobilinogen 0.2 Ur Leukocyte Esterase Trace H Urine RBC 0-2 Urine WBC 2-5 Intake & Output 04/14/19 04/15/19 04/16/19 04/17/19 23:59 23:59 23:59 23:59 Weight 90.718 kg Imaging - Results Chest X-ray: Image Reviewed EKG: Pending Problem List - Problems (1) Hyponatremia Assessment/Plan: Likely secondary to medication vs SIADH Sodium Deficit 493.9 NS fluids initiated in ED, will decrease to 42ml/hr Serial BMPs Serum Osmo, Na spot, Urine Osmo, Urine lytes Goal Sodium correction of 6-8meq/24hrs Seizure Precautions Fall Precautions Monitor vitals Consider Nephrology consult if condition worsens Code(s): E87.1 - HYPO-OSMOLALITY AND HYPONATREMIA (2) Acute metabolic encephalopathy Assessment/Plan: Likely secondary to Acute on Chronic Hyponatremia Monitor BMPs Continue gentle IVF Neurochecks Fall Precautions Monitor vitals Code(s): G93.41 - METABOLIC ENCEPHALOPATHY (3) Hypertension Assessment/Plan: stable Monitor BP Will have day team verify medications with family or home pharmacy in am Monitor BMP Code(s): I10 - ESSENTIAL (PRIMARY) HYPERTENSION (4) Hyperlipidemia Assessment/Plan: Verify home med, than continue Monitor LFTs Code(s): E78.5 - HYPERLIPIDEMIA, UNSPECIFIED Assessment/Plan This is a 68 y/o female with a PMHx of chronic Hyponatremia (takes Na tabs), Hyponatremic Seizure. Admitted to [facility] for Acute on Chronic Hyponatremia, Acute Metabolic Encephalopathy for further evaluation of their emergent condition. Plan: See Problem List FEN NS@42ml/hr Monitor BMP for repletion (Na Deficit 493) Regular Diet DVT ppx OOB SCDs Heparin SQ Dispo: Requires Inpatient Care Visit type - Emergency Visit Emergency Visit: Yes ED Registration Date: 04/17/19 Care time: The patient presented to the Emergency Department on the above date and was hospitalized for further evaluation of their emergent condition. - New Patient This patient is new to me today: Yes Date on this admission: 04/17/19 - Critical Care Critical Care patient: No
[2019-04-17] MEDS: HEPARIN NA (PORCINE) 5,000 UNITS/ML 1ML VIAL SQ SCH (22:25)
[2019-04-18 01:44] LABS: BLOOD UREA NITROGEN 8.9 mg/dL (7-18); CALCIUM 9.1 mg/dL (8.5-10.1); CREATININE 0.7 mg/dL (0.55-1.3); POTASSIUM 3.9 mmol/L (3.5-5.1)
[2019-04-18 07:06] VITALS: BP 148/81; PULSE 89; TEMP 97.4
[2019-04-18 07:51] LABS: CALCIUM 8.9 mg/dl (8.5-10); CREATININE 0.7 mg/dl (0.55-1.3); MAGNESIUM 1.8 mg/dL (1.8-2.4); PHOSPHOROUS 3.2 mg/dl (2.5-4.9); POTASSIUM 4.2 mmol/L (3.5-5.1)
[2019-04-18] MEDS: HEPARIN NA (PORCINE) 5,000 UNITS/ML 1ML VIAL SQ SCH (09:38)
[2019-04-18] MEDS: SODIUM CHLORIDE 1 GM TABLET PO SCH ×2 (09:38→13:09)
[2019-04-18] MEDS ORDERED: LISINOPRIL 10 MG TABLET (FP) PO SCH (10:00)
[2019-04-18] MEDS ORDERED: PATIENT'S OWN MEDICATION (NON-FORMULARY) (Simvastatin [Simvastatin] 10 MG) PO SCH (10:00)
[2019-04-18] MEDS ORDERED: amLODIPine BESYLATE 5 MG TABLET (FP) PO SCH (10:00)
--- NOTE | 2019-04-18 10:22 | DS ---
Physical Exam: SUBJECTIVE: Patient seen and examined at bedside. present. states patient is back to her baseline cognitive functioning and he would like to take her home. OBJECTIVE: Vital Signs Period Temp Pulse Resp BP Sys/Correa Pulse Ox Last 24 Hr 97.4 F-98.5 F 83-93 16-19 135-152/70-87 94-98 PHYSICAL EXAM GENERAL: The patient is awake, alert, and oriented. Speech is fluent and appropriate but stops mid sentence and cannot find the word. HEAD: Normal with no signs of trauma. EYES: PERRL, extraocular movements intact, sclera anicteric, conjunctiva clear. LUNGS: Breath sounds equal, clear to auscultation bilaterally, no wheezes, no crackles, no accessory muscle use. HEART: Regular rate and rhythm, S1, S2 ABDOMEN: Soft, nontender, nondistended EXTREMITIES: 2+ pulses, warm, well-perfused, no edema. NEUROLOGICAL: Cranial nerves II through XII grossly intact. Normal speech, steady gait. SKIN: Warm, dry, normal turgor Laboratory Results - last 24 hr 04/17/19 04/17/19 04/17/19 18:40 18:40 20:00 WBC 7.8 RBC 3.95 Hgb 12.4 Hct 36.8 MCV 93.3 MCH 31.3 MCHC 33.6 RDW 14.2 Plt Count 485 H D MPV 7.2 L Absolute Neuts (auto) 5.3 Neutrophils % 68.5 Lymphocytes % 24.0 Monocytes % 6.4 Eosinophils % 0.8 D Basophils % 0.3 Nucleated RBC % 0 Sodium 127 L Potassium 4.7 Chloride 92 L Carbon Dioxide 23 Anion Gap 12 BUN 13.0 Creatinine 0.8 Est GFR (CKD-EPI)AfAm 89.04 Est GFR (CKD-EPI)NonAf 76.83 Random Glucose 118 H Calcium 9.5 Phosphorus Magnesium Total Bilirubin 0.6 AST 28 ALT 18 Alkaline Phosphatase 50 Total Protein 7.5 Albumin 3.6 Urine Color Yellow Urine Appearance Clear Urine pH 6.5 Urine Protein Negative Urine Glucose (UA) Negative Urine Ketones Negative Urine Blood Negative Urine Nitrite Negative Urine Bilirubin Negative Urine Urobilinogen 0.2 Ur Leukocyte Esterase Trace H Urine RBC 0-2 Urine WBC 2-5 04/18/19 04/18/19 00:45 07:00 WBC RBC Hgb Hct MCV MCH MCHC RDW Plt Count MPV Absolute Neuts (auto) Neutrophils % Lymphocytes % Monocytes % Eosinophils % Basophils % Nucleated RBC % Sodium 133 L 130 L Potassium 3.9 4.2 Chloride 99 100 Carbon Dioxide 24 23 Anion Gap 10 7 L BUN 8.9 9.0 Creatinine 0.7 0.7 Est GFR (CKD-EPI)AfAm 104.64 104.64 Est GFR (CKD-EPI)NonAf 90.29 90.29 Random Glucose 99 102 Calcium 9.1 8.9 Phosphorus 3.2 Magnesium 1.8 Total Bilirubin AST ALT Alkaline Phosphatase Total Protein Albumin Urine Color Urine Appearance Urine pH Urine Protein Urine Glucose (UA) Urine Ketones Urine Blood Urine Nitrite Urine Bilirubin Urine Urobilinogen Ur Leukocyte Esterase Urine RBC Urine WBC HOSPITAL COURSE: Date of Admission:04/17/19 Date of Discharge: 04/18/19 68 year-old female with a PMH significant for HTN, HLD, chronic hyponatremia, and presently being evaluated as an outpatient for early onset dementia. Patient was brought to the ED by her when she stated she felt strange and started talking "gibberish," different from her baseline language deficits. He brought her to the ED where her sodium was 127. Patient was seen by nurseryperson Dr. Michael Mattson on 03/22/2019 for a workup for chronic hyponatremia. He discussed lowering salt tablets with patient's . titrated salt tablets dose from 5 pills daily to 3 over past several weeks. Patient was treated with normal saline, salt tabs, and fluid restriction. Sodium corrected to 133 today and with return to baseline cognitive functioning. She has a followup appointment on Wednesday with Dr. Felipe. Minutes to complete discharge: 35 Discharge Summary Problems reviewed: Yes Reason For Visit: HYPONATREMIA Current Active Problems Acute metabolic encephalopathy (Acute) Hyponatremia (Acute) Condition: Improved - Instructions Diet, Activity, Other Instructions: Resume taking 5 sodium tablets per day and follow up with Dr. Felipe on Wednesday. Restrict your fluid intake to 1.2L every 24 hours. Do not drink alcohol. Stop taking meloxicam, Alleve, ibuprofen, motrin, or any other NSAID. Return to the emergency department for any new or worsening symptoms. Referrals: Clay Felipe MD [Primary Care Provider] - Disposition: HOME - Home Medications Comprehensive Discharge Medication List: Ambulatory Orders Cholecalciferol (Vitamin D3) [Vitamin D3] 2,000 unit PO AM capsule 09/28/13 Simvastatin 10 mg PO DAILY 05/26/16 Sodium Chloride Tablet - 1 gm PO TID #90 tablet 05/28/16 This patient is new to me today: Yes Date on this admission: 04/18/19 Emergency Visit: Yes ED Registration Date: 04/17/19 Care time: The patient presented to the Emergency Department on the above date and was hospitalized for further evaluation of their emergent condition. Critical Care patient: No - Discharge Referral Referred to [facility] Med [facility] Yes Physician Referral: Clay Felipe MD (Int Med)
--- NOTE | 2019-04-18 10:35 | EKG ---
Test Reason : Blood Pressure : / mmHG Vent. Rate : 088 BPM Atrial Rate : 088 BPM P-R Int : 118 ms QRS Dur : 072 ms QT Int : 366 ms P-R-T Axes : 039 -06 021 degrees QTc Int : 442 ms NORMAL SINUS RHYTHM VOLTAGE CRITERIA FOR LEFT VENTRICULAR HYPERTROPHY ABNORMAL ECG WHEN COMPARED WITH ECG OF 01-JUL-2016 16:49, NON-SPECIFIC CHANGE IN ST SEGMENT IN LATERAL LEADS Confirmed by Sebastien Rios MD ([id number]) on 04/18/2019 10:34:59 AM Referred By: Confirmed By:Sebastien Rios MD
[2019-04-18 12:39] LABS: CALCIUM 9.1 mg/dl (8.5-10); CREATININE 0.8 mg/dl (0.55-1.3); POTASSIUM 4.3 mmol/L (3.5-5.1)
[2019-04-18] MEDS ORDERED: ATORVASTATIN CA 10 MG TABLET (FP) PO SCH (22:00)
[2019-04-19] MEDS ORDERED: PATIENT'S OWN MEDICATION (NON-FORMULARY) (Amlodipine Besylate/Benazepril [Amlodipine-Benaz PO SCH (07:00)
== END 2019-04-18 13:38 | disposition home or self-care (01) | DRG 640 ==
LOC: FER 18:00 → FM/S 19:24
PROVIDERS: ADMIT Internal Medicine; ATTEND Nurse Practitioner Acute Care
DX: E87.1 Hypo-osmolality and hyponatremia (principal); G93.41 Metabolic encephalopathy; I10 Essential (primary) hypertension; E78.5 Hyperlipidemia, unspecified; E66.9 Obesity, unspecified; Z68.33 Body mass index [BMI] 33.0-33.9, adult
CPT/HCPCS: 36415; 71045-TC-FY; 80048; 80053; 81003; 81015; 83735; 83930; 84100; 85025; 93005; 99285-25; J1644; J7030

== ENCOUNTER 2020-08-09 11:04 | Inpatient (IN) | payer OTHER ==
[2020-08-09] MEDS ORDERED: PIPERACILLIN/TAZOB 3.375 GM 3.375 GM in DEXTROSE 5%-WATER - 50 ML IVPB ONE (11:51)
[2020-08-09] MEDS ORDERED: VANCOMYCIN HCL 1,500 MG in DEXTROSE 5%-WATER - 500 ML IVPB ONE (11:51)
[2020-08-09] MEDS ORDERED: ACETAMINOPHEN 1000 MG/100 ML VIAL (NON FORMULARY) IVPB ONE (11:51)
[2020-08-09] MEDS ORDERED: VANCOMYCIN PREMIX 1.5 GM 1,500 MG/300 ML BAG IVPB ONE (12:00)
[2020-08-09] MEDS ORDERED: SODIUM CHLORIDE 1,000 ML IV SCH ×2 (12:00→18:30)
[2020-08-09] MEDS ORDERED: VANCOMYCIN 500 MG VIAL (RESTRICTED TO ID ONLY) ONE (12:07)
[2020-08-09] MEDS ORDERED: VANCOMYCIN 1 GRAM (PRE-DOCKED) 1,000 MG/250 ML BAG IVPB ONE (12:07)
[2020-08-09] MEDS ORDERED: PIPERACILLIN/TAZOB 3.375 GM 3.375 GM/50 ML BAG IVPB ONE (12:08)
[2020-08-09 12:16] LABS: BASO % 0.2 % (0-2.0); EOS % 0.1 % (0-4.5); HEMATOCRIT 30.5 % (32.4-45.2); HEMOGLOBIN 10.3 GM/dL (10.7-15.3); LYMPH % 3.4 % (8-40); MCH 34.9 pg (25.7-33.7); MCHC 33.8 g/dl (32.0-36.0); MEAN CELL VOLUME 103.3 fl (80-96); MEAN PLT VOLUME 7.5 fl (7.5-11.1); MONO % 0.8 % (3.8-10.2); NEUT % 95.5 % (42.8-82.8); PLATELET COUNT 96 10^3/uL (134-434); RBC 2.95 M/mm3 (3.60-5.2); RDW 21.6 % (11.6-15.6); WHITE BLOOD COUNT 3.8 K/mm3 (4.0-10.0)
[2020-08-09 12:17] LABS: VENOUS O2 SATURATION 29.1 % (70-80); VENOUS PCO2 41.9 mmHg (38-52); VENOUS PH 7.364 (7.310-7.410)
[2020-08-09 12:21] LABS: INR 1.05 (0.83-1.09); PROTHROMBIN TIME (PATIENT) 12.9 SEC (9.7-13.0)
[2020-08-09 12:24] LABS: ACTIVATED PTT 28.2 SECONDS (25.2-36.5)
[2020-08-09 12:27] LABS: EPI CELLS 21 /uL (0-25.1); HYALINE CASTS 1 /uL (0-3.1); URINE APPEARANCE CLOUDY; URINE BACTERIA 31 /uL (0-1359); URINE BILIRUBIN NEGATIVE (NEGATIVE); URINE COLOR DK YELLOW; URINE GLUCOSE (UA) NEGATIVE (NEGATIVE); URINE KETONE NEGATIVE (NEGATIVE); URINE LEUK ESTERASE TRACE (NEGATIVE); URINE NITRITE NEGATIVE (NEGATIVE); URINE PROTEIN 2+ (NEGATIVE); URINE RBC 15 /uL (0-23.9); URINE WBC 2 /uL (0-25.8)
[2020-08-09 12:34] LABS: CALCIUM 8.6 mg/dL (8.5-10.1)
[2020-08-09 12:36] LABS: ALBUMIN 2.1 g/dl (3.4-5.0); BLOOD UREA NITROGEN 27.7 mg/dL (7-18)
[2020-08-09 12:38] LABS: CREATININE 0.4 mg/dL (0.55-1.3)
[2020-08-09 12:40] LABS: BILIRUBIN,TOTAL 0.4 mg/dL (0.2-1); TOT PROT 6.1 g/dl (6.4-8.2)
[2020-08-09] MEDS ORDERED: AZITHROMYCIN IVPB 500 MG in DEXTROSE 5%-WATER - 250 ML IVPB ONE (12:40)
[2020-08-09 12:41] LABS: LACTIC ACID 3.1 mmol/L (0.4-2.0)
[2020-08-09 13:06] LABS: ANISOCYTOSIS 0; MACROCYTOSIS 1+; PLATELET ESTIMATE DECREASED
[2020-08-09] MEDS ORDERED: AZITHROMYCIN IVPB 500 MG/250 ML BAG IVPB ONE (14:33)
[2020-08-09 17:42] LABS: LACTIC ACID 3.8 mmol/L (0.4-2.0)
[2020-08-09] MEDS ORDERED: SODIUM CHLORIDE 1,000 ML IV STA (18:16)
[2020-08-09] MEDS ORDERED: SODIUM CHLORIDE 500 ML IV STA ×2 (18:16→23:09)
[2020-08-09] MEDS ORDERED: SODIUM CHLORIDE 0.9% 500 ML INFUS.BAG IV ONE (18:23)
[2020-08-09] MEDS ORDERED: DOCUSATE NA 100 MG/10 ML UNIT-DOSE CUPS PEG PRN (18:30)
[2020-08-09] MEDS ORDERED: DEXAMETHASONE SOD PHOSPHATE 10 MG/1 ML VIAL IVPB ONE (18:48)
[2020-08-09] MEDS ORDERED: DEXAMETHASONE SOD PHOSPHATE 10 MG/1 ML VIAL ONE (19:14)
[2020-08-09] MEDS ORDERED: ALBUTEROL SO4 2.5/IPRATROPIUM 0.5 INH SOL 3 ML VIAL.NEB. NEB ONE (19:14)
[2020-08-09 21:10] LABS: LACTIC ACID 3.8 mmol/L (0.4-2.0)
[2020-08-09] MEDS ORDERED: SODIUM CHLORIDE 250 ML IV STA (21:36)
[2020-08-09] MEDS: ATORVASTATIN CA 10 MG TABLET (FP) PEG SCH (22:40)
[2020-08-09] MEDS: METOPROLOL TARTRATE 50 MG TABLET (FP) PEG SCH (22:40)
[2020-08-09] MEDS: levETIRAcetam 500 MG/5 ML ORAL SOLUTION (UNIT-DOSE CUPS) PEG SCH (22:40)
[2020-08-09] MEDS: INSULIN SLIDING SCALE (NOVOLOG) 1 VIAL SQ SCH (22:46)
[2020-08-09] MEDS: VASOPRESSIN 40 UNITS in SODIUM CHLORIDE 98 ML IVPB SCH (23:30)
[2020-08-09] MEDS ORDERED: VASOPRESSIN 20 UNITS/ML VIAL IV ONE (23:55)
[2020-08-10] MEDS ORDERED: DEXTROSE 5%-WATER - 50 ML IVPB ONE ×3 (01:58→17:52)
[2020-08-10] MEDS ORDERED: PIPERACILLIN/TAZOBACTAM 3.375 GM VIAL IVPB ONE ×3 (01:58→17:52)
[2020-08-10] MEDS ORDERED: VANCOMYCIN PREMIX 1.5 GM 1,500 MG/300 ML BAG IVPB SCH (02:00)
[2020-08-10] MEDS ORDERED: VANCOMYCIN HCL 1,500 MG in DEXTROSE 5%-WATER - 250 ML IVPB SCH (02:00)
[2020-08-10] MEDS: PIPERACILLIN/TAZOB 3.375 GM 3.375 GM in DEXTROSE 5%-WATER - 50 ML IVPB SCH ×3 (02:08→17:54)
[2020-08-10 07:09] LABS: HEMATOCRIT 26.5 % (32.4-45.2); HEMOGLOBIN 8.7 GM/dL (10.7-15.3); MCH 34.8 pg (25.7-33.7); MCHC 32.8 g/dl (32.0-36.0); PLATELET COUNT 68 10^3/uL (134-434); RDW 21.8 % (11.6-15.6)
[2020-08-10 07:23] LABS: WHITE BLOOD COUNT 1.8 K/mm3 (4.0-10.0)
[2020-08-10 07:25] LABS: BLOOD UREA NITROGEN 16.7 mg/dL (7-18); CALCIUM 7.5 mg/dL (8.5-10.1)
[2020-08-10 07:27] LABS: BILIRUBIN,TOTAL 0.3 mg/dL (0.2-1); TOT PROT 4.8 g/dl (6.4-8.2)
[2020-08-10 07:29] LABS: CREATININE 0.4 mg/dL (0.55-1.3); PHOSPHOROUS 2.8 mg/dL (2.5-4.9)
[2020-08-10 07:37] LABS: ALBUMIN 1.5 g/dl (3.4-5.0)
[2020-08-10 07:39] LABS: LACTIC ACID 3.7 mmol/L (0.4-2.0)
[2020-08-10] MEDS: INSULIN SLIDING SCALE (NOVOLOG) 1 VIAL SQ SCH ×4 (08:17→21:53)
[2020-08-10] MEDS ORDERED: PT OWN MED DRAWER 7, Y5N ONE ×3 (08:53→21:17)
[2020-08-10] MEDS: ENOXAPARIN NA (PORCINE) 40 MG/0.4 ML DISP.SYRIN SQ SCH (09:00)
[2020-08-10] MEDS: levETIRAcetam 500 MG/5 ML ORAL SOLUTION (UNIT-DOSE CUPS) PEG SCH ×2 (09:00→21:54)
[2020-08-10] MEDS: METOPROLOL TARTRATE 50 MG TABLET (FP) PEG SCH ×2 (09:01→21:54)
[2020-08-10] MEDS: ALBUTEROL SO4 2.5/IPRATROPIUM 0.5 INH SOL 3 ML VIAL.NEB. NEB PRN ×2 (09:16→17:55)
[2020-08-10] MEDS ORDERED: PATIENT'S OWN MEDICATION (NON-FORMULARY) (Amlodipine Besylate/Benazepril [Amlodipine-Benaz PEG SCH (10:00)
[2020-08-10] MEDS ORDERED: LISINOPRIL 20 MG TABLET PEG SCH (10:00)
[2020-08-10] MEDS ORDERED: amLODIPine BESYLATE 5 MG TABLET (FP) PEG SCH (10:00)
[2020-08-10] MEDS ORDERED: SODIUM CHLORIDE 1,000 ML IV SCH (13:08)
[2020-08-10] MEDS: DEXTROSE 5%-0.45% SALINE 1,000 ML IV SCH (17:50)
[2020-08-10] MEDS: ATORVASTATIN CA 10 MG TABLET (FP) PEG SCH (21:54)
[2020-08-11] MEDS ORDERED: DEXTROSE 5%-WATER - 50 ML IVPB ONE ×4 (01:30→23:25)
[2020-08-11] MEDS ORDERED: PIPERACILLIN/TAZOBACTAM 3.375 GM VIAL IVPB ONE ×4 (01:30→23:25)
[2020-08-11] MEDS: PIPERACILLIN/TAZOB 3.375 GM 3.375 GM in DEXTROSE 5%-WATER - 50 ML IVPB SCH ×4 (01:43→18:06)
[2020-08-11] MEDS: VASOPRESSIN 40 UNITS in SODIUM CHLORIDE 98 ML IVPB SCH (01:43)
[2020-08-11 06:34] LABS: BASO % 0.2 % (0-2.0); EOS % 0.1 % (0-4.5); HEMOGLOBIN 7.1 GM/dL (10.7-15.3); LYMPH % 1.3 % (8-40); MCH 35.1 pg (25.7-33.7); MCHC 33.8 g/dl (32.0-36.0); MEAN CELL VOLUME 103.7 fl (80-96); MONO % 0.6 % (3.8-10.2); NEUT % 97.8 % (42.8-82.8); PLATELET COUNT 55 10^3/uL (134-434); RBC 2.03 M/mm3 (3.60-5.2); RDW 21.8 % (11.6-15.6); WHITE BLOOD COUNT 3.9 K/mm3 (4.0-10.0)
[2020-08-11] MEDS: INSULIN SLIDING SCALE (NOVOLOG) 1 VIAL SQ SCH ×4 (06:58→23:22)
[2020-08-11 07:06] LABS: ALBUMIN 1.4 g/dl (3.4-5.0); BLOOD UREA NITROGEN 14.3 mg/dL (7-18); CALCIUM 8.1 mg/dL (8.5-10.1)
[2020-08-11 07:10] LABS: CREATININE 0.2 mg/dL (0.55-1.3); PHOSPHOROUS 2.4 mg/dL (2.5-4.9)
[2020-08-11 07:11] LABS: BILIRUBIN,TOTAL 0.5 mg/dL (0.2-1); TOT PROT 4.8 g/dl (6.4-8.2)
[2020-08-11] MEDS ORDERED: POTASSIUM CHLORIDE ORAL LIQUID 20 MEQ/15 ML PEG ONE (09:05)
[2020-08-11] MEDS ORDERED: PT OWN MED DRAWER 7, Y5N ONE ×3 (09:52→21:32)
[2020-08-11] MEDS: levETIRAcetam 500 MG/5 ML ORAL SOLUTION (UNIT-DOSE CUPS) PEG SCH ×2 (10:02→21:43)
[2020-08-11] MEDS: ENOXAPARIN NA (PORCINE) 40 MG/0.4 ML DISP.SYRIN SQ SCH (10:02)
[2020-08-11] MEDS: METOPROLOL TARTRATE 50 MG TABLET (FP) PEG SCH ×2 (10:02→21:47)
[2020-08-11 10:35] LABS: ANISOCYTOSIS 1+; MACROCYTOSIS 1+; PLATELET ESTIMATE DECREASED
[2020-08-11 13:02] VITALS: BMI 30.2
[2020-08-11] MEDS: DEXTROSE 5%-0.45% SALINE 1,000 ML IV SCH (17:54)
[2020-08-11] MEDS: ATORVASTATIN CA 10 MG TABLET (FP) PEG SCH (21:43)
[2020-08-11] MEDS ORDERED: ACETAMINOPHEN 1000 MG/100 ML VIAL (NON FORMULARY) IVPB ONE (23:23)
[2020-08-12] MEDS: PIPERACILLIN/TAZOB 3.375 GM 3.375 GM in DEXTROSE 5%-WATER - 50 ML IVPB SCH ×3 (02:28→18:12)
[2020-08-12] MEDS ORDERED: PIPERACILLIN/TAZOBACTAM 3.375 GM VIAL IVPB ONE ×2 (08:45→17:59)
[2020-08-12] MEDS ORDERED: DEXTROSE 5%-WATER - 50 ML IVPB ONE ×2 (08:46→18:00)
[2020-08-12] MEDS: INSULIN SLIDING SCALE (NOVOLOG) 1 VIAL SQ SCH ×4 (08:48→21:17)
[2020-08-12] MEDS: levETIRAcetam 500 MG/5 ML ORAL SOLUTION (UNIT-DOSE CUPS) PEG SCH ×2 (09:00→21:17)
[2020-08-12] MEDS: METOPROLOL TARTRATE 50 MG TABLET (FP) PEG SCH ×2 (09:00→21:16)
[2020-08-12] MEDS: ENOXAPARIN NA (PORCINE) 40 MG/0.4 ML DISP.SYRIN SQ SCH (09:00)
[2020-08-12] MEDS ORDERED: DOCUSATE NA 100 MG/10 ML UNIT-DOSE CUPS PEG PRN (16:02)
[2020-08-12] MEDS ORDERED: ALBUTEROL SO4 2.5/IPRATROPIUM 0.5 INH SOL 3 ML VIAL.NEB. NEB PRN (16:02)
[2020-08-12] MEDS: DEXTROSE 5%-0.45% SALINE 1,000 ML IV SCH (18:24)
[2020-08-12] MEDS: ACETAMINOPHEN 1000 MG/100 ML VIAL (NON FORMULARY) IVPB PRN (20:18)
[2020-08-12] MEDS ORDERED: ATORVASTATIN CA 10 MG TABLET (FP) PEG SCH (22:00)
[2020-08-13] MEDS ORDERED: PIPERACILLIN/TAZOBACTAM 3.375 GM VIAL IVPB ONE ×3 (01:22→17:06)
[2020-08-13] MEDS ORDERED: DEXTROSE 5%-WATER - 50 ML IVPB ONE ×3 (01:22→17:06)
[2020-08-13] MEDS: PIPERACILLIN/TAZOB 3.375 GM 3.375 GM in DEXTROSE 5%-WATER - 50 ML IVPB SCH ×3 (01:25→17:19)
[2020-08-13] MEDS: INSULIN SLIDING SCALE (NOVOLOG) 1 VIAL SQ SCH ×4 (06:07→21:11)
[2020-08-13] MEDS ORDERED: PT OWN MED DRAWER 7, Y5N ONE ×2 (09:15→20:11)
[2020-08-13] MEDS: levETIRAcetam 500 MG/5 ML ORAL SOLUTION (UNIT-DOSE CUPS) PEG SCH ×2 (09:30→21:09)
[2020-08-13] MEDS: ENOXAPARIN NA (PORCINE) 40 MG/0.4 ML DISP.SYRIN SQ SCH (09:30)
[2020-08-13] MEDS: METOPROLOL TARTRATE 50 MG TABLET (FP) PEG SCH ×2 (09:30→21:31)
[2020-08-13] MEDS: ACETAMINOPHEN 1000 MG/100 ML VIAL (NON FORMULARY) IVPB PRN (11:15)
[2020-08-13] MEDS: MORPHINE SULFATE 2 MG/ML VIAL IVPUSH PRN (17:26)
[2020-08-13] MEDS: DEXTROSE 5%-0.45% SALINE 1,000 ML IV SCH (17:30)
[2020-08-14] MEDS ORDERED: DEXTROSE 5%-WATER - 50 ML IVPB ONE ×2 (00:32→09:18)
[2020-08-14] MEDS ORDERED: PIPERACILLIN/TAZOBACTAM 3.375 GM VIAL IVPB ONE ×2 (00:32→09:17)
[2020-08-14] MEDS: PIPERACILLIN/TAZOB 3.375 GM 3.375 GM in DEXTROSE 5%-WATER - 50 ML IVPB SCH ×2 (01:19→09:20)
[2020-08-14] MEDS ORDERED: ACETAMINOPHEN 1000 MG/100 ML VIAL (NON FORMULARY) IVPB ONE (05:18)
[2020-08-14] MEDS: INSULIN SLIDING SCALE (NOVOLOG) 1 VIAL SQ SCH ×2 (06:05→11:09)
[2020-08-14] MEDS: MORPHINE SULFATE 2 MG/ML VIAL IVPUSH PRN (08:23)
[2020-08-14] MEDS ORDERED: ACETAMINOPHEN 325 MG TABLET (FP) PO PRN (08:42)
[2020-08-14] MEDS: ENOXAPARIN NA (PORCINE) 40 MG/0.4 ML DISP.SYRIN SQ SCH (09:21)
[2020-08-14] MEDS: levETIRAcetam 500 MG/5 ML ORAL SOLUTION (UNIT-DOSE CUPS) PEG SCH (09:22)
[2020-08-14 13:49] VITALS: BP 105/58; PULSE 79; TEMP 97.9
== END 2020-08-14 15:01 | DRG 871 ==
LOC: JER 11:04 → JERBED 11:23 → J5S 19:45 → JICU 08-10 00:49 → J8W 08-12 15:37
PROVIDERS: ATTEND Internal Medicine
DX: A41.89 Other specified sepsis (principal); R65.21 Severe sepsis with septic shock; G93.6 Cerebral edema; J69.0 Pneumonitis due to inhalation of food and vomit; J96.01 Acute respiratory failure with hypoxia; G93.41 Metabolic encephalopathy; C71.9 Malignant neoplasm of brain, unspecified; E87.2 Acidosis; D61.818 Other pancytopenia; E87.1 Hypo-osmolality and hyponatremia; I95.9 Hypotension, unspecified; G40.909 Epilepsy, unspecified, not intractable, without status epilepticus; I10 Essential (primary) hypertension; E78.5 Hyperlipidemia, unspecified; Z93.1 Gastrostomy status
CPT/HCPCS: 36415; 70450-TC; 71045-TC-FY; 80053; 80177; 81003; 82803; 82947; 82962; 83605; 83735; 83880; 84100; 84484; 85025; 85027; 85610; 85730; 86769; 86850; 86900; 86901; 87040; 87086; 93005; 93010; 94640; 97116-GP; 97162-GP; 99291; C9803; J0131; J1100; U0003; U0005